=== PATIENT | male | born 1990 | race Caucasian/White ===

== ENCOUNTER 2023-05-31 04:40 | Emergency (ER) | payer SELFPAY ==
[2023-05-31 04:42] VITALS: BP 126/89; PULSE 70; RESP 20; TEMP 36.3; O2SAT 99; BMI 21.9
[2023-05-31 05:14] VITALS: BP 130/81; PULSE 70; O2SAT 98
--- NOTE | 2023-05-31 06:11 | ED_ITS ---
HPI - Allergic Reaction General: Chief complaint: Allergic Reaction Stated complaint: ALLERGIC REACTION Time Seen by Provider: 05/31/23 04:44 History of Present Illness: HPI narrative: 32-year-old male presents emerged depart ment feeling like he has been having allergic reaction. He states he started taking Effexor and had a single dose yesterday and this morning he woke up and feeling like his skin on his abdomen and his arms were burning. He states he felt like he had elevated blood pressure at that time although he has had no significant elevation of blood pressure while here in the emergency department. He denies shortness of breath pruritus difficulty swallowing or breathing. He denies nausea vomiting or feeling like he is having tachycardia. 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 Vital signs as documented. No acute distress at present. Alert and oriented-to person, place, time and situation. Head, eyes, ears, nose, mouth, throat: Normocephalic, atraumatic. Pupils-equal, round, reactive to light. No scleral icterus. Normal-appearing external ears. Normal appearing nasal turbinates, no drainage. No obvious oral lesions, posterior oropharynx without erythema or exudates. Neck: Supple, trachea is midline, no lymphadenopathy, no jugular venous distension, thyromegaly, or carotid bruits. Carotid upstrokes are brisk bilaterally. Lungs: clear to auscultation to all lung powers. Symmetrical rise and fall of chest, no obvious signs of increased work of breathing at present. Cardiac: Regular rate and rhythm, positive S1, S2. No murmurs, rubs or gallops that I can appreciate Abdomen: Soft, non-tender to palpation, normal active bowel sounds to all quadrants. No palpable masses, no organomegaly and abdominal bruits. Extremities: 2+ pulses in the upper extremities that are equal bilaterally, 2+ pulses in the lower extremities that are equal bilaterally. Non-edematous. Moves all extremities well, sensation to all extremities are noted. Skin: Warm, dry, intact. Course Vital Signs: Vital signs: Vital Signs Temperature 97.4 F L 05/31/23 04:42 Pulse Rate 70 05/31/23 05:14 Respiratory Rate 20 H 05/31/23 04:42 Blood Pressure 130/81 05/31/23 05:14 Pulse Oximetry 98 05/31/23 05:14 Oxygen Delivery Me thod Room Air 05/31/23 05:14 MDM - Allergic Reaction Medical Decision Making Physical exam completed and documented patient is not having any signs of allergic reaction I will continue to monitor him and treat accordingly. Medical Records I reviewed the patient's medical records. No radiology studies performed this visit Discharge Plan Discharge Patient Disposition: Home Clinical Impression: Adverse reaction to drug Condition: Stable Prescriptions: No Action venlafaxine [Effexor XR] 150 mg capsule,extended release 24hr 150 mg PO QAM Qty: 30 3RF Rx Instructions: Take one capsule every morning alprazolam 0.5 mg tablet 0.5 mg PO BID PRN (Reason: anxiety) Qty: 60 1RF Discharge Orders: Discharge ED (Routine); Ordered 05/31/23 Ordered By: Yakov Carroll Referrals: Rudy Barragan MD [Primary Care Provider] - Discharge Diet: Usual diet Discharge Activity: Resume usual activity Patient Instructions: Opioid Safety, Pain Management Activity Restrictions/Additional Instructions: Activity Restrictions/Additional Instructions: Thank you for choosing [facility] for your healthcare needs today. Please realize that you were seen in the Emergency Department and that we are providing you with an emergency medical screening exam and this may not be a complete and all inclusive of all the testing and or medical work-up that you may need to determine your ailment or severity of your illness. It is very important that you follow-up as instructed with your Primary care provider or Specialist for additional evaluation and to discuss your medical treatment plan. You may return to the Emergency Department should you have concerns or if your condition changes or worsens in any way. Coding Level of Care Code ED Caterers Helper for Joanie Finney
[2023-05-31 06:34] VITALS: BP 135/72; PULSE 77; RESP 16; O2SAT 97
== END 2023-05-31 06:35 | disposition home or self-care (01) ==
PROVIDERS: Emergency Provider Internal Medicine; Family Provider Family Medicine; PCP Family Medicine
DX: R20.8 Other disturbances of skin sensation (principal); T43.215A Adverse effect of selective serotonin and norepinephrine reuptake inhibitors, initial encounter; F17.220 Nicotine dependence, chewing tobacco, uncomplicated
CPT/HCPCS: 99281

== ENCOUNTER 2023-06-01 00:56 | Emergency (ER) | payer SELFPAY ==
[2023-06-01 01:00] VITALS: BP 132/91; PULSE 70; RESP 16; TEMP 36.1; O2SAT 100; BMI 25.1
--- NOTE | 2023-06-01 01:11 | XRR_ITS ---
PROCEDURE INFORMATION: Exam: XR Chest Exam date and time: 06/01/2023 1:16 AM Age: 32 years old Clinical indication: Pain; Chest pressure; Patient HX: C/O cp TECHNIQUE: Imaging protocol: Radiologic exam of the chest. Views: 1 view. COMPARISON: CR XR chest 1V [id number] 08/05/2018 12:44 PM FINDINGS: Lungs: Unremarkable. No consolidation. Pleural spaces: Unremarkable. No pleural effusion. No pneumothorax. Heart/Mediastinum: Unremarkable. No cardiomegaly. Bones/joints: Unremarkable. XR/XR chest 1V portable [id number] IMPRESSION: No acute findings.
--- NOTE | 2023-06-01 01:12 | ECG_ITS ---
[facility] Test Date: 2023-06-01 Pat Name: Darshan Lewis Department: Room: Gender: Male Magazine Filler: : 1990 Requested By: Angely Mckeon Order Number: [id number] Lacie MD: Aly Cavazos M.D. Measurements Intervals [place] Rate: 71 P: 53 MN: 135 QRS: 43 QRSD: 101 T: 35 QT: 370 QTc: 403 Interpretive Statements SINUS RHYTHM INCOMPLETE RIGHT BUNDLE BRANCH BLOCK [90+ ms QRS DURATION, TERMINAL R IN V1/V2, 40+ ms S IN I/aVL/V4/V5/V6] Compared to ECG 08/05/2018 12:54:09 Incomplete right bundle-branch block now present Electronically Signed On 06-01-2023 7:49:37 OPERATIONS EXAMINER by Aly Cavazos M.D. [id number]
--- NOTE | 2023-06-01 01:13 | ED_ITS ---
HPI - General Adult 2 General: Chief complaint: General Medical Stated complaint: Allergic reaction Time Seen by Provider: 06/01/23 01:02 Source: patient Mode of arrival: ambulatory Limitations: no limitations History of Present Illness: 32-year-old male who was seen here last night for medication reaction he states he just recently started expectorant he was not feeling right he stopped his Effexor he states he has had some heartburn throughout the day today. He states he has a burning sensation in his chest much worse when he lays flat. States he is feeling improved today from yesterday states he is also has some hypertension at home as well. Associated symptoms: Deny chest pain, dyspnea, headache(s), nausea, rash or vomiting Review of Systems 2 Const: Denies: fever(s) or chills ENMT: Denies: throat pain or dental pain Card: Denies: chest pain Resp: Denies: dyspnea GI: Reports: abdominal pain; Denies: nausea, vomiting or diarrhea Musc: Denies: neck pain or back pain Skin/Breast: Denies: rash Neuro: Denies: headache(s) PFSH ED 2 PFSH: Medical History Psychiatric care Bereavement Sudden loss of father November 2020 Generalized anxiety disorder Panic disorder without agoraphobia Major depressive disorder, recurrent severe without psychotic features Social History Smoking and tobacco/nicotine status: current every day tobacco/nicotine user smokeless tobacco Alcohol intake: former Substance/Drug Use: never 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 Physical Exam 2 Const: COMMON NORMALS: no acute distress, patient oriented x3 and healthy appearing HENMT: COMMON NORMALS: normocephalic and atraumatic HEAD & SCALP: n ormocephalic and atraumatic Eye: COMMON NORMALS: conjunctivae normal CONJUNCTIVA: Yes conjunctivae normal Neck/C-Spine: COMMON NORMALS: full ROM and supple Chest: COMMONS NORMALS: normal inspection of the chest Resp: COMMON NORMALS: normal respiratory effort Cardio: COMMON NORMALS: regular rate, regular rhythm and No murmurs present (Cardio) RATE: regular rate RHYTHM: regular rhythm Extremity: COMMON NORMALS: normal to inspection and full ROM Neuro: COMMON NORMALS: patient oriented x3, moves all extremities and no focal motor deficits Psych: COMMON NORMALS: mental status grossly normal, Normal thought process present and cooperative THOUGHT PROCESS: Normal thought process present Skin: COMMON NORMALS: no rashes or lesions noted and no wounds GENERAL SKIN EXAM: no rashes or lesions noted Course 2 Vital Signs: Vital signs: Vital Signs Temperature 97.0 F L 06/01/23 01:00 Pulse Rate 70 06/01/23 01:00 Respiratory Rate 16 06/01/23 01:00 Blood Pressure 132/91 06/01/23 01:00 Pulse Oximetry 100 06/01/23 01:00 Oxygen Delivery Me thod Room Air 06/01/23 01:00 MDM - General Adult Medical Decision Making Patient presents here with some chest pain along with reflux-like symptoms he has a mildly elevated bilirubin he has no pain on exam no right upper quadrant tenderness we will place him on Protonix he is to follow-up his PCP return if worsening he understands agrees to plan Medical Records I reviewed the patient's medical records. Lab Data I reviewed the patient's lab results. 06/01/23 01:24 06/01/23 01:24 Radiology Impressions Chest X-Ray 06/01/23 01:11 IMPRESSION: No acute findings. Laboratory Results WBC 6.97 10^3/uL (3.29-11.43) 06/01/23 01:24 RBC 5.60 10^6/uL (3.85-5.65) 06/01/23 01:24 Hgb 16.30 g/dL (11.27-16.99) 06/01/23 01:24 Hct 48.2 % (37-53) 06/01/23 01:24 MCV 86.1 fl (82-101) 06/01/23 01:24 MCH 29.1 pg (27-33) 06/01/23 01:24 MCHC 33.8 g/dL (30-55) 06/01/23:24 RDW 13.1 % (12.1-15.1) 06/01/23 01:24 Plt Count 211 10^3/cmm (157-399) 06/01/23 01:24 MPV 11.7 fL (7.4-10.4) H 06/01/23 01:24 Neut % (Auto) 56.2 % 06/01/23 01:24 Lymph % (Auto) 30.3 % 06/01/23 01:24 [place] % (Auto) 9.3 % 06/01/23 01:24 Eos % (Auto) 3.0 % 06/01/23 01:24 Baso % (Auto) 0.9 % 06/01/23 01:24 Neut # (Auto) 3.92 10^3/uL (1.8-7.7) 06/01/23 01:24 Lymph # (Auto) 2.1 10^3/uL (0.8-4.8) 06/01/23 01:24 [place] # (Auto) 0.7 10^3/uL (0.2-0.9) 06/01/23:24 Eos # (Auto) 0.2 10^3/uL (0.0-0.8) 06/01/23 01:24 Baso # (Auto) 0.1 10^3/uL (0.0-0.1) 06/01/23:24 Nucleated RBC % (auto) 0 % 06/01/23 01: Nucleated RBCs # 0.0 /100WBC 06/01/23 01:24 Sodium 142 mmol/L (136-145) 06/01/23 01:24 Potassium 4.3 mmol/L (3.5-5.1) 06/01/23 01:24 Chloride 103 mmol/L (98-107) 06/01/23 01:24 Carbon Dioxide 27 mmol/L (22-29) 06/01/23 01:24 Anion Gap 16.3 (5-19) 06/01/23 01:24 BUN 13 mg/dL (6-20) 06/01/23 01:24 Creatinine 1.0 mg/dL (0.7-1.2) 06/01/23 01:24 GFR Calculation 85.5 mL/min (90-130) L 06/01/23 01:24 Glucose 103 mg/dL (65-115) 06/01/23 01:24 Calculated Osmolality 294 mOsm/kg (285-295) 06/01/23 01:24 Calcium 9.2 mg/dL (8.5-10.5) 06/01/23 01:24 Total Bilirubin 2.2 mg/dL (0.15-1.2) H 06/01/23 01:24 AST 27 U/L (0-40) 06/01/23 01:24 ALT 59 U/L (0-41) H 06/01/23 01:24 Alkaline Phosphatase 78 U/L (40-130) 06/01/23 01:24 Total Protein 7.0 g/dL (6.6-8.7) 06/01/23 01:24 Albumin 4.6 g/dL (3.5-5.2) 06/01/23 01:24 Globulin 2.4 g/dL (1.3-4.6) 06/01/23 01:24 Lipase 40 U/L (13-60) 06/01/23 01:24 No radiology studies performed this visit Discharge Plan Discharge Patient Disposition: Home Clinical Impression: Abdominal pain Condition: Stable Prescriptions: New Protonix 40 mg tablet,delayed release (DR/EC) 40 mg PO DAILY Qty: 60 0RF No Action venlafaxine [Effexor XR] 150 mg capsule,extended release 24hr 150 mg PO QAM Qty: 30 3RF Rx Instructions: Take one capsule every morning alprazolam 0.5 mg tablet 0.5 mg PO BID PRN (Reason: anxiety) Qty: 60 1RF Discharge Orders: Discharge ED (Routine); Ordered 06/01/23 Ordered By: Angely Mckeon Referrals: Rudy Barragan MD [Primary Care Provider] - 4-7 days Discharge Diet: Advance as tolerated Discharge Activity: Resume usual activity Patient Instructions: Abdominal Pain (ED) Coding Level of Care Code ED Counter Pocket Sewer for Joanie Finney
[2023-06-01] MEDS: lidocaine 2% viscous 15 ML, aluminum-mag hydrox-simethicon 30 ML, sucralfate oral liq 1 GM PO (01:26)
[2023-06-01 01:30] LABS: Basophils # 0.1 10^3/uL (0.0-0.1); Basophils % 0.9 %; Eosinophils # 0.2 10^3/uL (0.0-0.8); Hematocrit 48.2 % (37-53); Lymphocytes # 2.1 10^3/uL (0.8-4.8); Lymphocytes % 30.3 %; Mean Corpuscular HGB Conc 33.8 g/dL (30-55); Mean Corpuscular Hemoglobin 29.1 pg (27-33); Mean Corpuscular Volume 86.1 fl (82-101); Mean Platelet Volume 11.7 fL (7.4-10.4); Monocytes # 0.7 10^3/uL (0.2-0.9); Monocytes % 9.3 %; Neutrophils # 3.92 10^3/uL (1.8-7.7); Neutrophils % 56.2 %; Nucleated Red Blood Cells % 0 %; Platelet Count 211 10^3/cmm (157-399); Red Cell Distribution Width 13.1 % (12.1-15.1); White Blood Count 6.97 10^3/uL (3.29-11.43)
[2023-06-01 01:37] VITALS: BP 132/98; PULSE 72; RESP 14; O2SAT 100
[2023-06-01 02:03] LABS: Alanine Aminotransferase 59 U/L (0-41); Albumin Level 4.6 g/dL (3.5-5.2); Alkaline Phosphatase 78 U/L (40-130); Anion Gap 16.3 (5-19); Aspartate Amino Transferase 27 U/L (0-40); Blood Urea Nitrogen 13 mg/dL (6-20); Calcium 9.2 mg/dL (8.5-10.5); Carbon Dioxide 27 mmol/L (22-29); Chloride 103 mmol/L (98-107); Creatinine Clr Calc Pharmacy 107.8615; Globulin 2.4 g/dL (1.3-4.6); Glomerular Filtration Rate 85.5 mL/min (90-130); Glucose 103 mg/dL (65-115); Lipase 40 U/L (13-60); Osmolality Calculated 294 mOsm/kg (285-295); Potassium 4.3 mmol/L (3.5-5.1); Sodium 142 mmol/L (136-145); Total Bilirubin 2.2 mg/dL (0.15-1.2)
[2023-06-01 02:07] VITALS: BP 126/81; PULSE 68; RESP 14; O2SAT 98
[2023-06-01] MEDS: pantoprazole DR 40 mg Tablet PO (02:45)
[2023-06-01 02:51] VITALS: BP 123/81; PULSE 59; RESP 16; O2SAT 97
== END 2023-06-01 02:52 | disposition home or self-care (01) ==
PROVIDERS: Emergency Provider Emergency Medicine; Family Provider Family Medicine; PCP Family Medicine
DX: R10.11 Right upper quadrant pain (principal); F17.220 Nicotine dependence, chewing tobacco, uncomplicated
CPT/HCPCS: 36415; 71045; 80053; 83690; 85025; 93005; 99285

== ENCOUNTER 2023-06-01 03:22 | Emergency (ER) | payer SELFPAY ==
[2023-06-01 04:10] VITALS: BP 153/84; PULSE 68; RESP 20; TEMP 36.6; O2SAT 100; BMI 25.1
--- NOTE | 2023-06-01 04:30 | ED_ITS ---
HPI - Anxiety General: Chief Complaint: Anxiety Stated Complaint: Allergic reation Time Seen by Provider: 06/01/23 04:24 Source: patient Mode of arrival: ambulatory Limitations: no limitations History of Present Illness: 32-year-old male seen here earlier state s he has been having burning esophagus since taking disease faster he stopped his Effexor yesterday states been having anxiety as well. He states that once he went home he started having extreme anxiety he no longer has any pain denies chest pain or abdominal pain he states he feels quite anxious he been checking his blood pressure and it was high as well. Denies any vomiting or diarrhea. Associated symptoms: Deny chest pain, chills, fever(s), headache(s), nausea or vomiting Review of Systems Const: Denies: fever(s), chills, body aches or change in appetite ENMT: Denies: throat pain or dental pain Card: Denies: chest pain Resp: Denies: dyspnea GI: Denies: abdominal pain, nausea, vomiting or diarrhea Musc: Denies: neck pain or back pain Skin/Breast: Denies: rash Neuro: Denies: headache(s) Psych: Reports: anxiety [facility] ED PFSH: Medical History Psychiatric care Bereavement Sudden loss of father November 2020 Generalized anxiety disorder Panic disorder without agoraphobia Major depressive disorder, recurrent severe without psychotic features Social History Smoking and tobacco/nicotine status: current every day tobacco/nicotine user smokeless tobacco Alcohol intake: former Substance/Drug Use: never 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 Physical Exam Const: COMMON NORMALS: no acute distress, patient oriented x3 and healthy appearing HENMT: COMMON NORMALS: normocephalic and atraumatic HEAD & SCALP: normoc ephalic and atraumatic Neck/C-Spine: COMMON NORMALS: full ROM and supple Chest: COMMONS NORMALS: normal inspection of the chest Resp: COMMON NORMALS: normal respiratory effort, No retractions, No use of accessory muscles and clear to auscultation bilaterally AUSCULTATION: clear to auscultation bilaterally Cardio: COMMON NORMALS: regular rate, regular rhythm and No murmurs present (Cardio) RATE: regular rate RHYTHM: regular rhythm GI: COMMON NORMALS: Normal to inspection, nondistended, normoactive bowel sounds present, Soft to palpation, non-tender and no masses PALPATION: Yes Soft to palpation Extremity: COMMON NORMALS: normal to inspection and full ROM Neuro: COMMON NORMALS: patient oriented x3, moves all extremities and no focal motor deficits Psych: COMMON NORMALS: mental status grossly normal, Normal thought process present and cooperative THOUGHT PROCESS: Normal thought process present Skin: COMMON NORMALS: no rashes or lesions noted and no wounds GENERAL SKIN EXAM: no rashes or lesions noted Course Vital Signs: Vital signs: Vital Signs Temperature 97.8 F 06/01/23 04:10 Pulse Rate 68 06/01/23 04:10 Respiratory Rate 20 H 06/01/23 04:10 Blood Pressure 153/84 06/01/23 04:10 Pulse Oximetry 100 06/01/23 04:10 MDM - Anxiety Medical Decision Making Patient presents with anxiety along with hypertension. His exam here is benign he has no abdominal tenderness he has no pain at this time currently. Will give him Ativan we will start him on metoprolol for his blood pressure he is to follow-up with PCP next week return if worsening No radiology studies performed this visit Discharge Plan Discharge Patient Disposition: Home Clinical Impression: Acute anxiety, Hypertension Condition: Stable Prescriptions: New metoprolol succinate 25 mg tablet extended release 24 hr 25 mg PO DAILY Qty: 30 0RF No Action venlafaxine [Effexor XR] 150 mg capsule,extended release 24hr 150 mg PO QAM Qty: 30 3RF Rx Instructions: Take one capsule every morning alprazolam 0.5 mg tablet 0.5 mg PO BID PRN (Reason: anxiety) Qty: 60 1RF Protonix 40 mg tablet,delayed release (DR/EC) 40 mg PO DAILY Qty: 60 0RF Discharge Orders: Discharge ED (Routine); Ordered 06/01/23 Ordered By: Angely Mckeon Referrals: Rudy Barragan MD [Primary Care Provider] - 4-7 days Discharge Diet: Advance as tolerated Discharge Activity: Resume usual activity Patient Instructions: Hypertension (ED) Coding Level of Care Code ED Dry House Operator for Joanie Finney
[2023-06-01] MEDS: metoprolol tartrate 25 mg Tablet PO (04:41)
[2023-06-01] MEDS: LORazepam 2 mg/mL INJ 10 mL MDV 1 MG IM (04:42)
[2023-06-01 05:03] VITALS: BP 125/73; RESP 16
[2023-06-01 05:55] VITALS: BP 110/66; RESP 14
== END 2023-06-01 06:00 | disposition home or self-care (01) ==
PROVIDERS: Emergency Provider Emergency Medicine; Family Provider Family Medicine; PCP Family Medicine
DX: F41.9 Anxiety disorder, unspecified (principal); I10 Essential (primary) hypertension; F17.220 Nicotine dependence, chewing tobacco, uncomplicated
CPT/HCPCS: 96372; 99284; J2060

== ENCOUNTER 2023-06-02 19:55 | Emergency (ER) | payer SELFPAY ==
[2023-06-02 19:59] VITALS: BP 138/92; PULSE 58; RESP 16; TEMP 36.4; O2SAT 100; BMI 25.1
[2023-06-02] MEDS: lidocaine 2% viscous 15 ML, aluminum-mag hydrox-simethicon 30 ML, sucralfate oral liq 1 GM PO (20:36)
--- NOTE | 2023-06-02 21:09 | ED_ITS ---
HPI - Allergic Reaction General: Chief complaint: Allergic Reaction Stated complaint: High bp Time Seen by Provider: 06/02/23 20:10 Source: patient Mode of arrival: ambulatory Limitations: no limitations History of Present Illness: HPI narrative: 32yo male presents with concerns of a po ssible allergic reaction. Patient states he has been seen at this facility multiple times over the past couple days. He reports that he did take venlafaxine on the night of 05/30/2023 and came to the emergency department on 05/31/2023 for concern of an allergic reaction. Patient states he did not take anymore the venlafaxine, but was seen early Friday morning for concerns of not feeling right. States he had a burning sensation in his chest that was worse when he lays flat. Patient was prescribed pantoprazole at that time. He was then seen again later in the morning of 06/01/2023 for increased anxiety and elevated blood pressure. Patient reports that he has had intermittent burning sensation in his upper arms, neck, and upper chest. He states that he is having burning sensation in his esophagus area as well. He states that he does not have an opportunity to picker machine operator his soliz toprazole yet, but has been taking his [id number]-[id number] famotidine without improvement. Patient also states that he did take 2 Benadryl tonight as it is his normal every night. Patient also reports that his blood pressure has been fluctuating. He denies chest pain, shortness of breath, abdominal pain, vomiting, diarrhea, any other concern at this time. Associated symptoms: Deny abdominal pain, facial swelling, tongue swelling or vomiting Review of Systems Const: Denies: fever(s) or chills Card: Denies: chest pain Resp: Denies: dyspnea GI: Denies: abdominal pain, vomiting or diarrhea Neuro: Denies: headache(s) All/Imm: Denies: urticaria, tongue swelling, facial swelling, acute wheezing or itchy eyes PFSH ED PFSH: Medical History Psychiatric care Bereavement Sudden loss of father November 2020 Generalized anxiety disorder Panic disorder without agoraphobia Major depressive disorder, recurrent severe without psychotic features Social History Smoking and tobacco/nicotine status: current every day tobacco/nicotine user smokeless tobacco Alcohol intake: former Substance/Drug Use: never 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 He is sitting upright on stretcher no acute distress. He is able to give history with no difficulty. No family is at bedside at time of exam HENMT: COMMON NORMALS: normocephalic HEAD & SCALP: normocephalic MOUTH: Normal oral and palatal mucosa present Neck/C-Spine: COMMON NORMALS: full ROM Chest: CHEST: Yes Symmetrical chest wall rise Resp: COMMON NORMALS: normal respiratory effort EFFORT & INSPECTION: Yes able to speak in complete sentences Back/Pelvis: COMMON NORMALS: thoraco-lumbar ROM normal Extremity: COMMON NORMALS: full ROM Neuro: COMMON NORMALS: patient oriented x3 SENSORIUM/ORIENTATION: Yes alert SPEECH: speech normal GAIT: Yes Normal gait present Psych: COMMON NORMALS: mental status grossly normal, cooperative, normal affect and speech normal APPEARANCE: Yes grossly normal ATTITUDE: Yes calm ACTIVITY/MOTOR BEHAVIOR: Yes appropriate eye contact SPEECH: Yes normal sp eech Course Reevaluation(s): Time: 21:05 Reevaluation #2: Patient reports that his heartburn is feeling much better after the medication. Patient's mother is now at bedside and is concerned that he may be having a heart attack as her only symptom was heartburn when she had her heart attack. They are questioning whether his cardiac enzymes were checked when he was here previously and had blood work completed. No cardiac enzymes were checked at that time. They are requesting cardiac enzymes to be checked today. Discussed that we can proceed with a baseline troponin as his symptoms have been ongoing for the past several days. If it is cardiac related, his baseline troponin would be elevated and we can proceed as indicated. Patient and family are agreeable with plan Vital Signs: Vital signs: Vital Signs Temperature 97.6 F 06/02/23 19:59 Pulse Rate 59 L 06/02/23 22:13 Respiratory Rate 16 06/02/23 22:13 Blood Pressure 119/77 06/02/23 22:13 Pulse Oximetry 98 06/02/23 22:13 Oxygen Delivery Me thod Room Air 06/02/23 19:59 MDM - Allergic Reaction Medical Decision Making 32yo male here for continued intermittent burning sensation in bilateral arms, neck, and upper chest as well as heartburn. Patient has been seen in this ER 3 times in the past 2 days for concern for an allergic reaction, heartburn, and anxiety. Patient reports that the burning sensation does go away for a while, but continues to come back. He reports that he has been taking his [id number]-frtmczv famotidine, but has not yet picked up his prescribed pantoprazole. He does report that he took 2 jdqm-idc-[id number] diphenhydramine prior to coming to the emergency department as that is his typical behavior at night. Patient denies headache, difficulty breathing, shortness of breath, chest pain, abdominal pain, vomiting, diarrhea. Patient is nontoxic in appearance. Vital signs are stable. Patient did report improvement in his heartburn after administration of a GI cocktail. Patient and his mother were concerned of possible cardiac etiology given that they do have a family history of cardiac problems and mother's only symptoms of her heart attack was heartburn. Proceeded with baseline troponin as patient symptoms have been ongoing for several days, so baseline should be elevated if cardiac in nature. Baseline troponin is negative. Discussed findings with patient and family. Strongly encourage patient to picker machine operator his previously prescribed pantoprazole and continue to monitor his symptoms. Recommend he follow-up with his doctor within the next week for recheck. Advised return to the emergency department if any rapid worsening symptoms, difficulty breathing, shortness of breath, chest pain, and as needed. Patient states understanding has no further questions at this time. Medical Records I reviewed the patient's medical records. Lab Data I reviewed the patient's lab results. Laboratory Results Troponin T Baseline < 6 ng/L (0-15) 06/02/23 21:30 No radiology studies performed this visit Discharge Plan Discharge Patient Disposition: Home Clinical Impression: Burning sensation GERD (gastroesophageal reflux disease) Qualifiers: Esophagitis presence: without esophagitis Qualified Code(s): K21.9 - Gastro- esophageal reflux disease without esophagitis Condition: Stable Prescriptions: No Action alprazolam 0.5 mg tablet 0.5 mg PO BID PRN (Reason: anxiety) Qty: 60 1RF metoprolol succinate 25 mg tablet extended release 24 hr 25 mg PO DAILY Qty: 30 0RF Protonix 40 mg tablet,delayed release (DR/EC) 40 mg PO DAILY Qty: 60 0RF Discharge Orders: Discharge ED (Routine); Ordered 06/02/23 Ordered By: William Jeffrey Referrals: Rudy Barragan MD [Primary Care Provider] - Discharge Diet: Advance as tolerated Discharge Activity: Resume usual activity Patient Instructions: GERD (Gastroesophageal Reflux Disease) (ED) Activity Restrictions/Additional Instructions: Your cardiac enzymes today were in the normal range Begin taking your previously prescribed Protonix as this will likely help your heartburn quite a bit. [facility] Please see provided handout with information about GERD Begin with a bland diet and slowly increase as tolerated Please continue to monitor the burning sensation Follow-up with your doctor later this week for recheck Return to the emergency department if any rapid worsening symptoms and as needed Coding Level of Care Code ED Mat Machine Operator for Joanie Finney
[2023-06-02 21:54] LABS: Troponin(5th) Baseline < 6 ng/L (0-15)
[2023-06-02 22:13] VITALS: BP 119/77; PULSE 59; RESP 16; O2SAT 98
== END 2023-06-02 22:16 | disposition home or self-care (01) ==
PROVIDERS: Emergency Provider Nurse Practitioner; Family Provider Family Medicine; PCP Family Medicine
DX: R20.8 Other disturbances of skin sensation (principal); K21.9 Gastro-esophageal reflux disease without esophagitis; F17.220 Nicotine dependence, chewing tobacco, uncomplicated
CPT/HCPCS: 36415; 84484; 99283

== ENCOUNTER 2023-06-05 19:48 | Emergency (ER) | payer SELFPAY ==
[2023-06-05 19:52] VITALS: BP 132/81; PULSE 70; RESP 16; TEMP 36.6; O2SAT 97
--- NOTE | 2023-06-05 20:26 | ED_ITS ---
HPI - General Adult General: Chief complaint: General Medical Stated complaint: Throats and Stomach burning Time Seen by Provider: 06/05/23 20:15 History of Present Illness: 42-year-old male patient comes in today with throat and stomach burning. Patient reports symptoms for the last 2 weeks that have been unbearable at times. Patient has had some improvement since starting pantoprazole but continues to have anxiety related to pain and discomfort. Patient's father has had problems with his heart and with gastritis so he is concerned he may have some gastritis. Patient has been been a tobacco user but has not used since the symptoms started. Patient appears nontoxic. Patient appears in no pain. Patient denies any blood in vomit or stool. 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 Physical Exam Const: COMMON NORMALS: alert HENMT: COMMON NORMALS: normocephalic HEAD & SCALP: normocephalic Neck/C-Spine: COMMON NORMALS: full ROM Resp: COMMON NORMALS: normal respiratory effort and clear to auscultation bilaterally AUSCULTATION: clear to auscultation bilaterally Cardio: COMMON NORMALS: regular rate and regular rhythm RATE: regular rate RHYTHM: regular rhythm GI: COMMON NORMALS: Soft to palpation PALPATION: Yes Soft to palpation and Yes Tenderness to palpation present (GI) (Epigastric tenderness) Back/Pelvis: COMMON NORMALS: thoracic and lumbar spine normal to inspection Extremity: COMMON NORMALS: normal to inspection Neuro: SENSORIUM/ORIENTATION: Yes alert Skin: COMMON NORMALS: turgor normal GENERAL SKIN EXAM: turgor normal Course Vital Signs: Vital signs: Vital Signs Temperature 97.9 F 06/05/23 19:52 Pulse Rate 70 06/05/23 19:52 Respiratory Rate 16 06/05/23 19:52 Blood Pressure 132/81 06/05/23 19:52 Pulse Oximetry 97 06/05/23 19:52 MDM - General Adult Medical Decision Making 32-year-old male patient comes in today with complaints of burning from his throat to his stomach. Patient reports some improvement discomfort since starting pantoprazole. Patient is wanting referral for EGD for further evaluation. Patient otherwise is in no acute distress. Vital signs are normal. Differential diagnosis includes esophagitis, peptic ulcer disease, pancreatitis, gallbladder disease. Review of the record noted no significant abnormalities on labs done on patient's last [address] a case management referral for EGD secondary to esophagitis. Patient reported understanding and agreed to plan. No radiology studies performed this visit Discharge Plan Discharge Patient Disposition: Home Clinical Impression: Esophagitis Condition: Stable Prescriptions: No Action alprazolam 0.5 mg tablet 0.5 mg PO BID PRN (Reason: anxiety) Qty: 60 1RF fluoxetine [Prozac] 20 mg capsule 20 mg PO .morning Qty: 30 3RF Rx Instructions: Take one capsule every morning metoprolol succinate 25 mg tablet extended release 24 hr 25 mg PO DAILY Qty: 30 0RF Protonix 40 mg tablet,delayed release (DR/EC) 40 mg PO DAILY Qty: 60 0RF Discharge Orders: Discharge ED (Routine); Ordered 06/05/23 Ordered By: Kan Cárdenas Discharge Diet: Usual diet Discharge Activity: Increase activity as tolerated Patient Instructions: Esophagitis (ED) Activity Restrictions/Additional Instructions: Continue with routine medications. Case management will contact you regarding follow-up appointment with surgeon for upper endoscopy procedures for further evaluation of burning chest pain. Return to ER for new concerns or worsening symptoms such as severe shortness of breath, inability to swallow, blood in vomit or stool. Coding Level of Care Code ED Fruit Loader for Joanie Finney
--- NOTE | 2023-06-06 11:42 | DCPLANNER ---
Message was sent to general surgery on 06/06/23 at [id number]. [facility] to contact patient with an appt.
== END 2023-06-05 20:32 | disposition home or self-care (01) ==
PROVIDERS: Emergency Provider Nurse Practitioner Family
DX: K20.90 Esophagitis, unspecified without bleeding (principal); F17.220 Nicotine dependence, chewing tobacco, uncomplicated
CPT/HCPCS: 99281

== ENCOUNTER 2023-06-12 18:51 | Emergency (ER) | payer SELFPAY ==
[2023-06-12 18:56] VITALS: BP 146/81; PULSE 71; RESP 16; TEMP 36.5; O2SAT 99
[2023-06-12 20:53] LABS: Basophils # 0.1 10^3/uL (0.0-0.1); Basophils % 0.9 %; Eosinophils # 0.1 10^3/uL (0.0-0.8); Eosinophils % 1.6 %; Hematocrit 47.1 % (37-53); Lymphocytes # 2.1 10^3/uL (0.8-4.8); Lymphocytes % 28.9 %; Mean Corpuscular HGB Conc 33.5 g/dL (30-55); Mean Corpuscular Hemoglobin 29.2 pg (27-33); Mean Corpuscular Volume 86.9 fl (82-101); Mean Platelet Volume 11.9 fL (7.4-10.4); Monocytes # 0.6 10^3/uL (0.2-0.9); Monocytes % 8.1 %; Neutrophils # 4.45 10^3/uL (1.8-7.7); Neutrophils % 60.2 %; Nucleated Red Blood Cells % 0 %; Platelet Count 224 10^3/cmm (157-399); Red Blood Count 5.42 10^6/uL (3.85-5.65); Red Cell Distribution Width 13.2 % (12.1-15.1)
[2023-06-12 21:18] LABS: Alanine Aminotransferase 23 U/L (0-41); Albumin Level 4.6 g/dL (3.5-5.2); Alkaline Phosphatase 65 U/L (40-130); Anion Gap 11.7 (5-19); Aspartate Amino Transferase 16 U/L (0-40); Blood Urea Nitrogen 11 mg/dL (6-20); Calcium 9.2 mg/dL (8.5-10.5); Carbon Dioxide 30 mmol/L (22-29); Chloride 102 mmol/L (98-107); Creatinine Clr Calc Pharmacy 104.9229; Globulin 2.4 g/dL (1.3-4.6); Glomerular Filtration Rate 85.5 mL/min (90-130); Glucose 84 mg/dL (65-115); Lipase 64 U/L (13-60); Osmolality Calculated 289 mOsm/kg (285-295); Potassium 3.7 mmol/L (3.5-5.1); Sodium 140 mmol/L (136-145); Total Bilirubin 1.2 mg/dL (0.15-1.2)
--- NOTE | 2023-06-12 22:09 | W.ED.ABDPA2 ---
Documented by User: ERIN Giles 06/12/23 22:17 HPI - Abdominal Pain General: Chief Complaint: Abdominal Pain Stated Complaint: Upper ABD Pain Time Seen by Provider: 06/12/23 21:20 Source: patient Mode of arrival: ambulatory Limitations: no limitations History of Present Illness: Patient is a 32-year-old male with past medical history of GERD who presents to the emergency department complaining of epigastric pain onset 2 weeks. Patient states the pain began all of a sudden, and that he is worried it is a hernia due to his familial history. He does note that he has been on Protonix chronically due to his history of reflux, and states that his current pain is worsened with eating. However, he denies regurgitation of food or the inability to swallow solids or liquids. He denies history of alcohol abuse. The pain does not radiate and is localized just beneath the xiphoid process. It feels gnawing in characteristic, and has become more constant since onset. He states that it is starting to interfere with his job, as he is constantly exerting himself. He notes that he has a consult with Dr. Mendoza next Friday for potential upper endoscopy. Otherwise, patient denies any fever, shortness of breath, nausea/vomiting, bowel changes, or any other symptoms. MD elicited complaint: abdominal pain Onset (ago): week(s) Pain Consistency: constant Location: Epigastric Quality: other (gnawing) Radiation: none Migration to: no migration Exacerbating factors: eating Associated Symptoms: Denies chills, constipation, diarrhea, dysuria, fever(s), nausea and vomiting Review of Systems General: Reports: 10 or more systems reviewed and unremarkable except in HPI and below Const: Denies: fever(s), chills or fatigue Eyes: Denies: change in vision ENMT: Denies: throat pain, ear or mastoid pain or nasal discharge Card: Denies: chest pain, palpitations, swelling of feet/ankles or lightheadedness Resp: Denies: dyspnea, productive cough or wheezing GI: Reports: abdominal pain; Denies: nausea, vomiting, diarrhea or constipation : Denies: flank pain, difficulty urinating, dysuria or urinary frequency Musc: Denies: neck pain, back pain or joint pain Skin/Breast: Denies: rash Neuro: Denies: headache(s), numbness in extremities or weakness in extremities PFSH ED PFSH: Medical History Psychiatric care Bereavement Sudden loss of father November 2020 Generalized anxiety disorder Panic disorder without agoraphobia Major depressive disorder, recurrent severe without psychotic features Social History Smoking and tobacco/nicotine status: current every day tobacco/nicotine user smokeless tobacco Alcohol intake: former Substance/Drug Use: never 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 Physical Exam Const: COMMON NORMALS: no acute distress, average body habitus, patient oriented x3, no limitations, healthy appearing, alert and well nourished GENERAL APPEARANCE: cooperative and comfortable ORIENTATION/CONSCIOUSNESS: Yes awake HENMT: COMMON NORMALS: normocephalic, atraumatic, hearing grossly normal bilaterally, external ears normal, Normal external nose present, Normal nasal mucous membranes and turbinates present and moist oral mucous membranes HEAD & SCALP: normocephalic and atraumatic NOSE: Normal external nose present and Normal nasal mucous membranes and turbinates present EXTERNAL EAR: Yes external ears normal Eye: COMMON NORMALS: Equal, round and reactive pupils present, EOMs intact bilaterally, conjunctivae normal and normal visual powers by confrontation CONJUNCTIVA: Yes conjunctivae normal PUPIL: Yes Equal, round and reactive pupils present Neck/C-Spine: COMMON NORMALS: full ROM, supple, no meningeal signs and no JVD Resp: COMMON NORMALS: normal respiratory effort, No retractions, No use of accessory muscles and clear to auscultation bilaterally AUSCULTATION: clear to auscultation bilaterally, no crackles, no rales, no rhonchi and no wheezes Cardio: COMMON NORMALS: no JVD, regular rate, regular rhythm, S1 normal heart sound present, S2 normal heart sound present, No gallops present (Cardio), No clicks present (Cardio), No murmurs present (Cardio), No rub (Cardio) and Peripheral pulses 2+ throughout RATE: regular rate RHYTHM: regular rhythm HEART SOUNDS: S1 normal heart sound present and S2 normal heart sound present PERIPHERAL PULSES: Peripheral pulses 2+ throughout GI: COMMON NORMALS: Normal to inspection, nondistended, normoactive bowel sounds present, Soft to palpation, No hepatosplenomegaly present and no masses INSPECTION: Yes normal to inspection, No abdominal wall ecchymosis and No abdominal distension AUSCULTATION: Yes normoactive bowel sounds PALPATION: Yes Soft to palpation, Yes Tenderness to palpation present (GI) Details: other (Mild epigastric TTP), No Guarding due to palpation present (GI), No Rigid due to palpation, Yes No hepatosplenomegaly present and No Pulsatile mass present RECTAL EXAM: Yes deferred Extremity: COMMON NORMALS: normal to inspection and full ROM Neuro: COMMON NORMALS: patient oriented x3, moves all extremities, no focal motor deficits and no sensory deficits noted SENSORIUM/ORIENTATION: Yes alert MENINGEAL SIGNS: Yes no meningeal signs Psych: COMMON NORMALS: mental status grossly normal, cooperative and speech normal SPEECH: Yes normal speech Skin: COMMON NORMALS: no rashes or lesions noted GENERAL SKIN EXAM: no rashes or lesions noted Course Vital Signs: Vital signs: Vital Signs Temperature 97.7 F 06/12/23 22:20 Pulse Rate 71 06/12/23 22:20 Respiratory Rate 16 06/12/23 22:20 Blood Pressure 146/81 06/12/23 22:20 Pulse Oximetry 99 06/12/23 22:20 Oxygen Delivery Me thod Room Air 06/12/23 18:56 MDM - Abdominal Pain Medical Decision Making This patient is a 32-year-old male who was seen and evaluated in the emergency department today for epigastric pain for the past 2 weeks. On arrival, patient's vitals were normal and have remained so throughout his ED course. CBC ordered failed to demonstrate any signs of acute infection and was unremarkable. CMP also unremarkable. Patient reports longstanding history of GERD for which she takes Protonix, and has a appointment with Dr. Mendoza next week to discuss possible upper endoscopy to evaluate his current symptoms. Due to patient's negative workup today, I feel it is appropriate for patient to continue plan for follow-up, and I will prescribe him some Carafate to take prior to this visit. He is also instructed to continue taking Protonix. Differential diagnosis includes GERD, gastric ulcer, pancreatitis. Patient agrees with plan for discharge and will follow-up on Friday as planned. Reasons to return are discussed. Patient discharged home. Lab Data 06/12/23 20:29 06/12/23 20:29 Labs/Radiology: Laboratory Results WBC 7.40 10^3/uL (3.29-11.43) 06/12/23 20: RBC 5.42 10^6/uL (3.85-5.65) 06/12/23 20: Hgb 15.80 g/dL (11.27-16.99) 06/12/23 20: Hct 47.1 % (37-53) 06/12/23 20: MCV 86.9 fl (82-101) 06/12/23 20: MCH 29.2 pg (27-33) 06/12/23 20: MCHC 33.5 g/dL (30-55) 06/12/23: RDW 13.2 % (12.1-15.1) 06/12/23: Plt Count 224 10^3/cmm (157-399) 06/12/23: MPV 11.9 fL (7.4-10.4) H 06/12/23: Neut % (Auto) 60.2 % 06/12/23: Lymph % (Auto) 28.9 % 06/12/23 20: Mayes % (Auto) 8.1 % 06/12/23: Eos % (Auto) 1.6 % 06/12/23: Baso % (Auto) 0.9 % 06/12/23: Neut # (Auto) 4.45 10^3/uL (1.8-7.7) 06/12/23: Lymph # (Auto) 2.1 10^3/uL (0.8-4.8) 06/12/23: Mayes # (Auto) 0.6 10^3/uL (0.2-0.9) 06/12/23: Eos # (Auto) 0.1 10^3/uL (0.0-0.8) 06/12/23: Baso # (Auto) 0.1 10^3/uL (0.0-0.1) 06/12/23: Nucleated RBC % (auto) 0 % 06/12/23: Nucleated RBCs # 0.0 /100WBC 06/12/23 20: Sodium 140 mmol/L (136-145) 06/12/23: Potassium 3.7 mmol/L (3.5-5.1) 06/12/23 20: Chloride 102 mmol/L (98-107) 06/12/23 20: Carbon Dioxide 30 mmol/L (22-29) H 06/12/23 20:29 Anion Gap 11.7 (5-19) 06/12/23 20:29 BUN 11 mg/dL (6-20) 06/12/23 20: Creatinine 1.0 mg/dL (0.7-1.2) 06/12/23 20:29 GFR Calculation 85.5 mL/min (90-130) L 06/12/23 20:29 Glucose 84 mg/dL (65-115) 06/12/23 20: Calculated Osmolality 289 mOsm/kg (285-295) 06/12/23 20: Calcium 9.2 mg/dL (8.5-10.5) 06/12/23 20: Total Bilirubin 1.2 mg/dL (0.15-1.2) 06/12/23 20: AST 16 U/L (0-40) 06/12/23 20: ALT 23 U/L (0-41) 06/12/23 20:29 Alkaline Phosphatase 65 U/L (40-130) 06/12/23 20:29 Total Protein 7.0 g/dL (6.6-8.7) 06/12/23 20: Albumin 4.6 g/dL (3.5-5.2) 06/12/23 20: Globulin 2.4 g/dL (1.3-4.6) 06/12/23 20: Lipase 64 U/L (13-60) H 06/12/23 20:29 No radiology studies performed this visit Discharge Plan Discharge Patient Disposition: Home Clinical Impression: Epigastric abdominal pain Condition: Stable Prescriptions: New Carafate 1 gram tablet 1 g PO TID 10 Days Qty: 30 0RF No Action alprazolam 0.5 mg tablet 0.5 mg PO BID PRN (Reason: anxiety) Qty: 60 1RF fluoxetine [Prozac] 20 mg capsule 20 mg PO .morning Qty: 30 3RF Rx Instructions: Take one capsule every morning metoprolol succinate 25 mg tablet extended release 24 hr 25 mg PO DAILY Qty: 30 0RF Protonix 40 mg tablet,delayed release (DR/EC) 40 mg PO DAILY Qty: 60 0RF Discharge Orders: Discharge ED (Routine); Ordered 06/12/23 Ordered By: Darshan Suarez Discharge Diet: Usual diet Discharge Activity: Increase activity as tolerated Patient Instructions: Abdominal Pain (ED) Activity Restrictions/Additional Instructions: Carafate as prescribed. Continue your Protonix as usual. Plenty of fluids. Continue plan to follow-up with Dr. Mendoza next week. Return if you develop any new or worsening symptoms. Coding Level of Care Code ED [employer] for [facility] Documented by User: Bert Holman DO 06/13/23 06:15 HPI - Abdominal Pain General: Chief Complaint: Abdominal Pain Stated Complaint: Upper ABD Pain Time Seen by Provider: 06/12/23 21:20 [facility] ED PFSH: Medical History Psychiatric care Bereavement Sudden loss of father November 2020 Generalized anxiety disorder Panic disorder without agoraphobia Major depressive disorder, recurrent severe without psychotic features Social History Smoking and tobacco/nicotine status: current every day tobacco/nicotine user smokeless tobacco Alcohol intake: former Substance/Drug Use: never 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 On arrival, patient's vitals were normal and have remained so throughout his ED course. CBC ordered failed to demonstrate any signs of acute infection and was unremarkable. CMP also unremarkable. Patient reports longstanding history of GERD for which she takes Protonix, and has a appointment with Dr. Mendoza next week to discuss possible upper endoscopy to evaluate his current symptoms. Due to patient's negative workup today, I feel it is appropriate for patient to continue plan for follow-up, and I will prescribe him some Carafate to take prior to this visit. He is also instructed to continue taking Protonix. Differential diagnosis includes GERD, gastric ulcer, pancreatitis. Patient agrees with plan for discharge and will follow-up on Friday as planned. Reasons to return are discussed. Patient discharged home. Chart reviewed and patient discussed with midlevel. Agree with assessment and plan. Lab Data 06/12/23 20:06/12/23 20: Labs/Radiology: Laboratory Results WBC 7.40 10^3/uL (3.29-11.43) 06/12/23 20: RBC 5.42 10^6/uL (3.85-5.65) 06/12/23 20: Hgb 15.80 g/dL (11.27-16.99) 06/12/23 20: Hct 47.1 % (37-53) 06/12/23: MCV 86.9 fl (82-101) 06/12/23: MCH 29.2 pg (27-33) 06/12/23 20: MCHC 33.5 g/dL (30-55) 06/12/23 20: RDW 13.2 % (12.1-15.1) 06/12/23: Plt Count 224 10^3/cmm (157-399) 06/12/23 20: MPV 11.9 fL (7.4-10.4) H 06/12/23 20: Neut % (Auto) 60.2 % 06/12/23: Lymph % (Auto) 28.9 % 06/12/23 20: Mayes % (Auto) 8.1 % 06/12/23 20: Eos % (Auto) 1.6 % 06/12/23: Baso % (Auto) 0.9 % 06/12/23: Neut # (Auto) 4.45 10^3/uL (1.8-7.7) 06/12/23 20: Lymph # (Auto) 2.1 10^3/uL (0.8-4.8) 06/12/23 20: Mayes # (Auto) 0.6 10^3/uL (0.2-0.9) 06/12/23 20: Eos # (Auto) 0.1 10^3/uL (0.0-0.8) 06/12/23 20: Baso # (Auto) 0.1 10^3/uL (0.0-0.1) 06/12/23 20: Nucleated RBC % (auto) 0 % 06/12/23 20: Nucleated RBCs # 0.0 /100WBC 06/12/23 20: Sodium 140 mmol/L (136-145) 06/12/23 20: Potassium 3.7 mmol/L (3.5-5.1) 06/12/23: Chloride 102 mmol/L (98-107) 06/12/23: Carbon Dioxide 30 mmol/L (22-29) H 06/12/23 20: Anion Gap 11.7 (5-19) 06/12/23 20: BUN 11 mg/dL (6-20) 06/12/23 20: Creatinine 1.0 mg/dL (0.7-1.2) 06/12/23 20: GFR Calculation 85.5 mL/min (90-130) L 06/12/23: Glucose 84 mg/dL (65-115) 06/12/23 20: Calculated Osmolality 289 mOsm/kg (285-295) 06/12/23 20: Calcium 9.2 mg/dL (8.5-10.5) 06/12/23 20: Total Bilirubin 1.2 mg/dL (0.15-1.2) 06/12/23 20: AST 16 U/L (0-40) 06/12/23 20: ALT 23 U/L (0-41) 06/12/23 20: Alkaline Phosphatase 65 U/L (40-130) 06/12/23 20: Total Protein 7.0 g/dL (6.6-8.7) 06/12/23 20:29 Albumin 4.6 g/dL (3.5-5.2) 06/12/23 20:29 Globulin 2.4 g/dL (1.3-4.6) 06/12/23 20:29 Lipase 64 U/L (13-60) H 06/12/23 20:29 Discharge Plan Discharge Patient Disposition: Home Clinical Impression: Epigastric abdominal pain Condition: Stable Prescriptions: New Carafate 1 gram tablet 1 g PO TID 10 Days Qty: 30 0RF No Action alprazolam 0.5 mg tablet 0.5 mg PO BID PRN (Reason: anxiety) Qty: 60 1RF fluoxetine [Prozac] 20 mg capsule 20 mg PO .morning Qty: 30 3RF Rx Instructions: Take one capsule every morning metoprolol succinate 25 mg tablet extended release 24 hr 25 mg PO DAILY Qty: 30 0RF Protonix 40 mg tablet,delayed release (DR/EC) 40 mg PO DAILY Qty: 60 0RF Discharge Orders: Discharge ED (Routine); Ordered 06/12/23 Ordered By: Darshan Suarez Discharge Diet: Usual diet Discharge Activity: Increase activity as tolerated Patient Instructions: Abdominal Pain (ED) Activity Restrictions/Additional Instructions: Carafate as prescribed. Continue your Protonix as usual. Plenty of fluids. Continue plan to follow-up with Dr. Mendoza next week. Return if you develop any new or worsening symptoms. Coding Level of Care Code ED Vice President [employer] for Joanie Finney
[2023-06-12 22:20] VITALS: BP 146/81; PULSE 71; RESP 16; TEMP 36.5; O2SAT 99
== END 2023-06-12 22:21 | disposition home or self-care (01) ==
PROVIDERS: Emergency Medicine; Emergency Provider Physician Assistant
DX: R10.13 Epigastric pain (principal); F17.220 Nicotine dependence, chewing tobacco, uncomplicated
CPT/HCPCS: 36415; 80053; 83690; 85025; 99283

== ENCOUNTER 2023-08-16 05:19 | Emergency (ER) | payer SELFPAY ==
[2023-08-16 05:26] VITALS: BP 124/84; PULSE 58; RESP 15; TEMP 36.4; O2SAT 99; BMI 25.1
[2023-08-16 05:32] VITALS: BP 129/83; PULSE 61; RESP 16; O2SAT 100
--- NOTE | 2023-08-16 05:39 | ED_ITS ---
Documented by User: Wilmer Solorzano DO 08/16/23 05:42 HPI - Abdominal Pain 2 General: Chief Complaint: Abdominal Pain Stated Complaint: Pain Upper ABD Time Seen by Provider: 08/16/23 05:30 History of Present Illness: Patient presents to the ER with complaints of recurring upper abdominal epigastric pain for the last 3 months. Patient said this pain is worse when he eats food. And nothing seems to make it better. Patient is also been having loose stools or diarrhea for this time. Patient has seen Dr. Mendoza for this epigastric abdominal pain and per his last note he was started on daily Protonix and 3 times daily Carafate with has improved the symptoms. He was post increase Protonix to twice a day and a were talking about getting an EGD. Patient says he is never set this up because he does not have insurance. 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 Physical Exam 2 Const: COMMON NORMALS: no acute distress, average body habitus, patient oriented x3, no limitations, healthy appearing, alert and well nourished HENMT: COMMON NORMALS: normocephalic, atraumatic, hearing grossly normal bilaterally, external ears normal, Normal external nose present, moist oral mucous membranes and oropharynx normal HEAD & SCALP: normocephalic and atraumatic NOSE: Normal external nose present EXTERNAL EAR: Yes external ears normal Neck/C-Spine: COMMON NORMALS: no JVD Chest: COMMONS NORMALS: normal inspection of the chest and normal palpation of entire chest wall Resp: COMMON NORMALS: normal respiratory effort, No retractions, No use of accessory muscles and clear to auscultation bilaterally AUSCULTATION: clear to auscultation bilaterally Cardio: COMMON NORMALS: no JVD, regular rate, regular rhythm, S1 normal heart sound present, S2 normal heart sound present, No gallops present (Cardio), No clicks present (Cardio), No murmurs present (Cardio) and No rub (Cardio) R ATE: regular rate RHYTHM: regular rhythm HEART SOUNDS: S1 normal heart sound present and S2 normal heart sound present GI: COMMON NORMALS: Normal to inspection, nondistended, normoactive bowel sounds present, Soft to palpation, No hepatosplenomegaly present and no masses; negative for non-tender (Tender over epigastric region) PALPATION: Yes Soft to palpation and Yes No hepatosplenomegaly present Neuro: COMMON NORMALS: patient oriented x3 SENSORIUM/ORIENTATION: Yes alert Course 2 Vital Signs: Vital signs: Vital Signs Temperature 97.6 F 08/16/23 05:26 Pulse Rate 52 L 08/16/23 06:32 Respiratory Rate 14 08/16/23 06:32 Blood Pressure 110/72 08/16/23 06:32 Pulse Oximetry 97 08/16/23 06:32 Oxygen Delivery Me thod Room Air 08/16/23 06:32 MDM - Abdominal Pain Medical Records I reviewed the patient's medical records. Lab Data I reviewed the patient's lab results. 08/16/23 05:35 08/16/23 06:16 Labs/Radiology: Laboratory Results WBC 5.94 10^3/uL (3.29-11.43) 08/16/23 05:35 RBC 5.40 10^6/uL (3.85-5.65) 08/16/23 05:35 Hgb 16.30 g/dL (11.27-16.99) 08/16/23 05:35 Hct 47.1 % (37-53) 08/16/23 05:35 MCV 87.2 fl (82-101) 08/16/23 05:35 MCH 30.2 pg (27-33) 08/16/23 05:35 MCHC 34.6 g/dL (30-55) 08/16/23 05:35 RDW 13.3 % (12.1-15.1) 08/16/23 05:35 Plt Count 196 10^3/cmm (157-399) 08/16/23 05:35 MPV 11.4 fL (7.4-10.4) H 08/16/23 05:35 Neut % (Auto) 54.3 % 08/16/23 05:35 Lymph % (Auto) 32.3 % 08/16/23 05:35 Dane % (Auto) 9.1 % 08/16/23 05:35 Eos % (Auto) 3.2 % 08/16/23 05:35 Baso % (Auto) 0.8 % 08/16/23 05:35 Neut # (Auto) 3.22 10^3/uL (1.8-7.7) 08/16/23 05:35 Lymph # (Auto) 1.9 10^3/uL (0.8-4.8) 08/16/23 05:35 Dane # (Auto) 0.5 10^3/uL (0.2-0.9) 08/16/23 05:35 Eos # (Auto) 0.2 10^3/uL (0.0-0.8) 08/16/23 05:35 Baso # (Auto) 0.1 10^3/uL (0.0-0.1) 08/16/23 05:35 Nucleated RBC % (auto) 0 % 08/16/23 05:35 Nucleated RBCs # 0.0 /100WBC 08/16/23 05:35 Sodium 139 mmol/L (136-145) 08/16/23 06:16 Potassium 3.7 mmol/L (3.5-5.1) 08/16/23 06:16 Chloride 104 mmol/L (98-107) 08/16/23 06:16 Carbon Dioxide 26 mmol/L (22-29) 08/16/23 06:16 Anion Gap 12.7 (5-19) 08/16/23 06:16 BUN 10 mg/dL (6-20) 08/16/23 06:16 Creatinine 1.0 mg/dL (0.7-1.2) 08/16/23 06:16 GFR Calculation 85.5 mL/min (90-130) L 08/16/23 06:16 Glucose 98 mg/dL (65-115) 08/16/23 06:16 Calculated Osmolality 287 mOsm/kg (285-295) 08/16/23 06:16 Calcium 8.5 mg/dL (8.5-10.5) 08/16/23 06:16 Magnesium 2.0 mg/dL (1.7-2.3) 08/16/23 06:16 Total Bilirubin 0.9 mg/dL (0.15-1.2) 08/16/23 06:16 AST 17 U/L (0-40) 08/16/23 06:16 ALT 25 U/L (0-41) 08/16/23 06:16 Alkaline Phosphatase 72 U/L (40-130) 08/16/23 06:16 Total Protein 6.4 g/dL (6.6-8.7) L 08/16/23 06:16 Albumin 4.0 g/dL (3.5-5.2) 08/16/23 06:16 Globulin 2.4 g/dL (1.3-4.6) 08/16/23 06:16 Lipase 36 U/L (13-60) 08/16/23 06:16 No radiology studies performed this visit Discharge Plan Discharge Patient Disposition: Home Clinical Impression: GERD (gastroesophageal reflux disease) Condition: Stable Prescriptions: New Carafate 1 gram tablet 1 g PO Q6H PRN (Reason: stomach upset) 56 Days Qty: 224 0RF No Action pantoprazole [Protonix] 40 mg tablet,delayed release (DR/EC) 40 mg PO BID 42 Days Qty: 84 1RF fluoxetine [Prozac] 20 mg capsule 20 mg PO .morning Qty: 30 3RF Rx Instructions: Take one capsule every morning alprazolam 1 mg tablet 1 mg PO BID Qty: 60 2RF Rx Instructions: Take one tablet at 8 am and 4 pm cyproheptadine 4 mg tablet 4 mg PO BEDTIME Qty: 30 2RF Rx Instructions: Take one tablet at bedtime acetaminophen 500 mg Capsule 1,000 mg PO QID PRN (Reason: Pain) Discharge Orders: Discharge ED (Routine); Ordered 08/16/23 Ordered By: Bret Holman Discharge Activity: Increase activity as tolerated Patient Instructions: Diet for Stomach Ulcers and Gastritis (ED), GERD (Gastroesophageal Reflux Disease) (ED), Opioid Safety, Pain Management Activity Restrictions/Additional Instructions: Thank you for choosing [facility] for your healthcare needs today. Please realize this is an emergency room and that we are providing you with a medical screening exam and this may not be complete and all inclusive of all the testing and or work up that you may need to determine your ailment or severity of your illness. It is very important that you follow up as instructed or that you return to the Emergency Department should you have concerns or if your condition changes or worsens in any way. Sign Out Sign Out Data: Patient Sign Out occurred on 08/16/23 at 06:04. Patient's care was discussed, and care was transferred from Wilmer Solorzano DO to Bert Holman DO. Coding Level of Care Code ED Shower Maid for Chg Fwd Documented by User: Bert Holman DO 08/16/23 07:50 HPI - Abdominal Pain 2 General: Chief Complaint: Abdominal Pain Stated Complaint: Pain Upper ABD Time Seen by Provider: 08/16/23 05:30 PFSH ED 2 PFSH: Medical History Psychiatric care Bereavement Sudden loss of father November 2020 Generalized anxiety disorder Panic disorder without agoraphobia Major depressive disorder, recurrent severe without psychotic features Social History Smoking and tobacco/nicotine status: current every day tobacco/nicotine user smokeless tobacco Alcohol intake: former Substance/Drug Use: never 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 Labs reviewed. Hemoglobin normal BUN normal lipase not elevated. Continue the pantoprazole he is already on twice daily. Will add Carafate for back to Dr. Mendoza. Lab Data 08/16/23 05:35 08/16/23 06:16 Labs/Radiology: Laboratory Results WBC 5.94 10^3/uL (3.29-11.43) 08/16/23 05:35 RBC 5.40 10^6/uL (3.85-5.65) 08/16/23 05:35 Hgb 16.30 g/dL (11.27-16.99) 08/16/23 05:35 Hct 47.1 % (37-53) 08/16/23 05:35 MCV 87.2 fl (82-101) 08/16/23 05:35 MCH 30.2 pg (27-33) 08/16/23 05:35 MCHC 34.6 g/dL (30-55) 08/16/23 05:35 RDW 13.3 % (12.1-15.1) 08/16/23 05:35 Plt Count 196 10^3/cmm (157-399) 08/16/23 05:35 MPV 11.4 fL (7.4-10.4) H 08/16/23 05:35 Neut % (Auto) 54.3 % 08/16/23 05:35 Lymph % (Auto) 32.3 % 08/16/23 05:35 Dane % (Auto) 9.1 % 08/16/23 05:35 Eos % (Auto) 3.2 % 08/16/23 05:35 Baso % (Auto) 0.8 % 08/16/23 05:35 Neut # (Auto) 3.22 10^3/uL (1.8-7.7) 08/16/23 05:35 Lymph # (Auto) 1.9 10^3/uL (0.8-4.8) 08/16/23 05:35 Dane # (Auto) 0.5 10^3/uL (0.2-0.9) 08/16/23 05:35 Eos # (Auto) 0.2 10^3/uL (0.0-0.8) 08/16/23 05:35 Baso # (Auto) 0.1 10^3/uL (0.0-0.1) 08/16/23 05:35 Nucleated RBC % (auto) 0 % 08/16/23 05:35 Nucleated RBCs # 0.0 /100WBC 08/16/23 05:35 Sodium 139 mmol/L (136-145) 08/16/23 06:16 Potassium 3.7 mmol/L (3.5-5.1) 08/16/23 06:16 Chloride 104 mmol/L (98-107) 08/16/23 06:16 Carbon Dioxide 26 mmol/L (22-29) 08/16/23 06:16 Anion Gap 12.7 (5-19) 08/16/23 06:16 BUN 10 mg/dL (6-20) 08/16/23 06:16 Creatinine 1.0 mg/dL (0.7-1.2) 08/16/23 06:16 GFR Calculation 85.5 mL/min (90-130) L 08/16/23 06:16 Glucose 98 mg/dL (65-115) 08/16/23 06:16 Calculated Osmolality 287 mOsm/kg (285-295) 08/16/23 06:16 Calcium 8.5 mg/dL (8.5-10.5) 08/16/23 06:16 Magnesium 2.0 mg/dL (1.7-2.3) 08/16/23 06:16 Total Bilirubin 0.9 mg/dL (0.15-1.2) 08/16/23 06:16 AST 17 U/L (0-40) 08/16/23 06:16 ALT 25 U/L (0-41) 08/16/23 06:16 Alkaline Phosphatase 72 U/L (40-130) 08/16/23 06:16 Total Protein 6.4 g/dL (6.6-8.7) L 08/16/23 06:16 Albumin 4.0 g/dL (3.5-5.2) 08/16/23 06:16 Globulin 2.4 g/dL (1.3-4.6) 08/16/23 06:16 Lipase 36 U/L (13-60) 08/16/23 06:16 Discharge Plan Discharge Patient Disposition: Home Clinical Impression: GERD (gastroesophageal reflux disease) Condition: Stable Prescriptions: New Carafate 1 gram tablet 1 g PO Q6H PRN (Reason: stomach upset) 56 Days Qty: 224 0RF No Action pantoprazole [Protonix] 40 mg tablet,delayed release (DR/EC) 40 mg PO BID 42 Days Qty: 84 1RF fluoxetine [Prozac] 20 mg capsule 20 mg PO .morning Qty: 30 3RF Rx Instructions: Take one capsule every morning alprazolam 1 mg tablet 1 mg PO BID Qty: 60 2RF Rx Instructions: Take one tablet at 8 am and 4 pm cyproheptadine 4 mg tablet 4 mg PO BEDTIME Qty: 30 2RF Rx Instructions: Take one tablet at bedtime acetaminophen 500 mg Capsule 1,000 mg PO QID PRN (Reason: Pain) Discharge Orders: Discharge ED (Routine); Ordered 08/16/23 Ordered By: Bert Holman Discharge Activity: Increase activity as tolerated Patient Instructions: Diet for Stomach Ulcers and Gastritis (ED), GERD (Gastroesophageal Reflux Disease) (ED), Opioid Safety, Pain Management Activity Restrictions/Additional Instructions: Thank you for choosing [facility] for your healthcare needs today. Please realize this is an emergency room and that we are providing you with a medical screening exam and this may not be complete and all inclusive of all the testing and or work up that you may need to determine your ailment or severity of your illness. It is very important that you follow up as instructed or that you return to the Emergency Department should you have concerns or if your condition changes or worsens in any way. Sign Out Sign Out Data: Patient Sign Out occurred on 08/16/23 at 06:04. Patient's care was discussed, and care was transferred from Wilmer Solorzano DO to Bert Holman DO. Coding Level of Care Code ED Shower Maid for Joanie Finney
[2023-08-16 05:45] LABS: Basophils # 0.1 10^3/uL (0.0-0.1); Basophils % 0.8 %; Eosinophils # 0.2 10^3/uL (0.0-0.8); Eosinophils % 3.2 %; Hematocrit 47.1 % (37-53); Lymphocytes # 1.9 10^3/uL (0.8-4.8); Lymphocytes % 32.3 %; Mean Corpuscular HGB Conc 34.6 g/dL (30-55); Mean Corpuscular Hemoglobin 30.2 pg (27-33); Mean Corpuscular Volume 87.2 fl (82-101); Mean Platelet Volume 11.4 fL (7.4-10.4); Monocytes # 0.5 10^3/uL (0.2-0.9); Monocytes % 9.1 %; Neutrophils # 3.22 10^3/uL (1.8-7.7); Neutrophils % 54.3 %; Nucleated Red Blood Cells % 0 %; Platelet Count 196 10^3/cmm (157-399); Red Cell Distribution Width 13.3 % (12.1-15.1); White Blood Count 5.94 10^3/uL (3.29-11.43)
[2023-08-16] MEDS: ondansetron 2 mg/ML SDV 2 mL 4 MG IVP (05:54)
[2023-08-16] MEDS: famotidine 20 mg/2 mL INJ 40 MG IVP (05:54)
[2023-08-16] MEDS: sodium chloride 0.9% 1,000 ML 999 ML IV (05:54)
[2023-08-16 06:02] VITALS: BP 110/77; PULSE 60; RESP 14; O2SAT 97
[2023-08-16 06:32] VITALS: BP 110/72; PULSE 52; RESP 14; O2SAT 97
[2023-08-16 06:37] LABS: Alanine Aminotransferase 25 U/L (0-41); Alkaline Phosphatase 72 U/L (40-130); Anion Gap 12.7 (5-19); Aspartate Amino Transferase 17 U/L (0-40); Blood Urea Nitrogen 10 mg/dL (6-20); Calcium 8.5 mg/dL (8.5-10.5); Carbon Dioxide 26 mmol/L (22-29); Chloride 104 mmol/L (98-107); Creatinine Clr Calc Pharmacy 107.8615; Globulin 2.4 g/dL (1.3-4.6); Glomerular Filtration Rate 85.5 mL/min (90-130); Glucose 98 mg/dL (65-115); Lipase 36 U/L (13-60); Osmolality Calculated 287 mOsm/kg (285-295); Potassium 3.7 mmol/L (3.5-5.1); Sodium 139 mmol/L (136-145); Total Bilirubin 0.9 mg/dL (0.15-1.2); Total Protein 6.4 g/dL (6.6-8.7)
== END 2023-08-16 06:53 | disposition home or self-care (01) ==
PROVIDERS: Emergency Medicine; Emergency Provider Family Medicine
DX: K21.9 Gastro-esophageal reflux disease without esophagitis (principal); F17.220 Nicotine dependence, chewing tobacco, uncomplicated
CPT/HCPCS: 36415; 80053; 83690; 83735; 85025; 96361; 96374; 96375; 99284; J2405; J3490; J7030

== ENCOUNTER 2023-09-27 07:07 | Emergency (ER) | payer SELFPAY ==
[2023-09-27 07:16] VITALS: BP 127/80; PULSE 69; RESP 17; TEMP 36.4; O2SAT 97
--- NOTE | 2023-09-27 07:31 | ECG_ITS ---
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 Measurements Intervals [place] Rate: 76 P: 47 [place]: 146 QRS: 50 QRSD: 93 T: 31 QT: 358 QTc: 404 Interpretive Statements SINUS RHYTHM INCOMPLETE RIGHT BUNDLE BRANCH BLOCK [90+ ms QRS DURATION, TERMINAL R IN V1/V2, 40+ ms S IN I/aVL/V4/V5/V6] Compared to ECG 06/01/2023 01:23:22 No significant changes Electronically Signed On 09-27-2023 21:33:34 CDT by Nikhil Garcia M.D. [email or web address]
--- NOTE | 2023-09-27 07:42 | XRR_ITS ---
PROCEDURE INFORMATION: Exam: XR Chest Exam date and time: 09/27/2023 8:03 AM Age: 33 years old Clinical indication: Cough and dyspnea; Additional info: Dyspnea/cough TECHNIQUE: Imaging protocol: Radiologic exam of the chest. Views: 1 view. COMPARISON: CR (CHEST, ) 06/01/2023 1:16 AM FINDINGS: Lungs: Unremarkable. No consolidation. Pleural spaces: Unremarkable. No pleural effusion. No pneumothorax. Heart/Mediastinum: Unremarkable. No cardiomegaly. Bones/joints: Unremarkable. XR/XR chest 1V portable [id number] IMPRESSION: No acute findings.
--- NOTE | 2023-09-27 07:42 | ED_ITS ---
HPI - Abdominal Pain 2 General: Chief Complaint: Abdominal Pain Stated Complaint: stomach pain, SOB Time Seen by Provider: 09/27/23 07:12 Source: patient Mode of arrival: ambulatory History of Present Illness: 33-year-old male presents emergency room complaining of abdominal pain. Patient has chronic abdominal pain has been here several times in the last few months laboratory tests have been negative each time he was to have reflux has been treated with PPI. He has not noticed anything that exacerbates or relieves it he has noticed a little bit of dysuria the last few weeks. Denies any fever sweats chills no hematochezia melena hematemesis or coffee-ground sees previously had an appendectomy. Chart reviewed previous ER visits reviewed as well. Patient denies regular use of alcohol. He has been referred to surgery and has endoscopy scheduled. MD elicited complaint: abdominal pain Onset (ago): month(s) (4) Pain Consistency: intermittent Location: Epigastric Quality: cramping Exacerbating factors: nothing Relieving factors: nothing Associated Symptoms: Reports heartburn; Denies anorexia, belching, bloating, change in bowel habits, change in stool character, chills, coffee ground emesis, constipation, GI cramping, diarrhea, dyspepsia, dysuria, excessive flatus, fever(s), hematochezia, hematuria, hematemesis, fecal incontinence, loose stools, melena, nausea, poor appetite, syncope and vomiting Review of Systems 2 Const: Denies: fever(s) or chills Card: Denies: chest pain or syncope Resp: Denies: dyspnea GI: Reports: abdominal pain and heartburn; Denies: nausea, vomiting, hematemesis, coffee ground emesis, diarrhea, constipation, bloating, GI cramping, belching, excessive flatus, fecal incontinence, change in bowel habits, change in stool character, hematochezia or melena : Denies: dysuria, urinary frequency, urinary urgency or hematuria Musc: Denies: neck pain or back pain Skin/Breast: Denies: rash PFSH ED 2 PFSH: Medical History Psychiatric care Bereavement Sudden loss of father November 2020 Generalized anxiety disorder Panic disorder without agoraphobia Major depressive disorder, recurrent severe without psychotic features Social History Smoking and tobacco/nicotine status: current every day tobacco/nicotine user smokeless tobacco Alcohol intake: former Substance/Drug Use: never 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 Physical Exam 2 Const: COMMON NORMALS: no acute distress GENERAL APPEARANCE: cooperative and comfortable ORIENTATION/CONSCIOUSNESS: Yes awake, Yes oriented to person, Yes oriented to place and Yes oriented to time HENMT: COMMON NORMALS: normocephalic, atraumatic and hearing grossly normal bilaterally HEAD & SCALP: normocephalic and atraumatic Resp: COMMON NORMALS: normal respiratory effort, No retractions, No use of accessory muscles and clear to auscultation bilaterally AUSCULTATION: clear to auscultation bilaterally Cardio: COMMON NORMALS: regular rate, regular rhythm and No murmurs present (Cardio) RATE: regular rate RHYTHM: regular rhythm GI: COMMON NORMALS: Soft to palpation and No hepatosplenomegaly present A USCULTATION: Yes normoactive bowel sounds PALPATION: Yes Soft to palpation, No Tenderness to palpation present (GI), No Guarding due to palpation present (GI) and Yes No hepatosplenomegaly present Extremity: COMMON NORMALS: normal to inspection, capillary refill normal, no clubbing, cyanosis or edema, no calf tenderness and no pedal edema Neuro: SENSORIUM/ORIENTATION: Yes oriented to person, Yes oriented to place and Yes oriented to time Skin: COMMON NORMALS: no rashes or lesions noted GENERAL SKIN EXAM: no rashes or lesions noted Course 2 Vital Signs: Vital signs: Vital Signs Temperature 97.6 F 09/27/23 07:16 Pulse Rate 69 09/27/23 07:16 Respiratory Rate 17 09/27/23 07:16 Blood Pressure 127/80 09/27/23 10:55 Pulse Oximetry 95 09/27/23 10:55 Oxygen Delivery Me thod Room Air 09/27/23 07:16 MDM - Abdominal Pain Medical Decision Making CT shows some cholelithiasis but does not really either clinically or on laboratory tests have signs of acute cholecystitis at this time. [place] not for HIDA scan here is an appointment see Dr. Mendoza for endoscopy which I think he should complete he is feeling better after the GI cocktail continue his PPIs. Set up to outpatient HIDA scan Medical Records I reviewed the patient's medical records. Lab Data I reviewed the patient's lab results. 09/27/23 07:39 09/27/23 07:39 Labs/Radiology: Radiology Impressions Chest X-Ray 09/27/23 07:42 IMPRESSION: No acute findings. Abdomen/Pelvis CT 09/27/23 07:49 IMPRESSION: 1. No acute findings. 2. Cholelithiasis without CT evidence of cholecystitis 3. Evidence of prior appendectomy without complication. 4. Chronic findings as above Laboratory Results WBC 6.47 10^3/uL (3.29-11.43) 09/27/23 07:39 RBC 5.18 10^6/uL (3.85-5.65) 09/27/23 07:39 Hgb 15.10 g/dL (11.27-16.99) 09/27/23 07:39 Hct 45.0 % (37-53) 09/27/23 07:39 MCV 86.9 fl (82-101) 09/27/23 07:39 MCH 29.2 pg (27-33) 09/27/23 07:39 MCHC 33.6 g/dL (30-55) 09/27/23 07:39 RDW 13.2 % (12.1-15.1) 09/27/23 07:39 Plt Count 194 10^3/cmm (157-399) 09/27/23 07:39 MPV 11.8 fL (7.4-10.4) H 09/27/23 07:39 Neut % (Auto) 55.2 % 09/27/23 07:39 Lymph % (Auto) 30.3 % 09/27/23 07:39 [place] % (Auto) 10.5 % 09/27/23 07:39 Eos % (Auto) 2.5 % 09/27/23 07:39 Baso % (Auto) 0.9 % 09/27/23 07:39 Neut # (Auto) 3.57 10^3/uL (1.8-7.7) 09/27/23 07:39 Lymph # (Auto) 2.0 10^3/uL (0.8-4.8) 09/27/23 07:39 [place] # (Auto) 0.7 10^3/uL (0.2-0.9) 09/27/23 07:39 Eos # (Auto) 0.2 10^3/uL (0.0-0.8) 09/27/23 07:39 Baso # (Auto) 0.1 10^3/uL (0.0-0.1) 09/27/23 07:39 Nucleated RBC % (auto) 0 % 09/27/23 07:39 Nucleated RBCs # 0.0 /100WBC 09/27/23 07:39 Sodium 141 mmol/L (136-145) 09/27/23 07:39 Potassium 4.1 mmol/L (3.5-5.1) 09/27/23 07:39 Chloride 103 mmol/L (98-107) 09/27/23 07:39 Carbon Dioxide 27 mmol/L (22-29) 09/27/23 07:39 Anion Gap 15.1 (5-19) 09/27/23 07:39 BUN 16 mg/dL (6-20) 09/27/23 07:39 Creatinine 1.0 mg/dL (0.7-1.2) 09/27/23 07:39 GFR Calculation 85.0 mL/min (90-130) L 09/27/23 07:39 Glucose 111 mg/dL (65-115) 09/27/23 07:39 Calculated Osmolality 294 mOsm/kg (285-295) 09/27/23 07:39 Calcium 9.3 mg/dL (8.5-10.5) 09/27/23 07:39 Total Bilirubin 1.0 mg/dL (0.15-1.2) 09/27/23 07:39 AST 24 U/L (0-40) 09/27/23 07:39 ALT 44 U/L (0-41) H 09/27/23 07:39 Alkaline Phosphatase 71 U/L (40-130) 09/27/23 07:39 Total Protein 6.9 g/dL (6.6-8.7) 09/27/23 07:39 Albumin 4.5 g/dL (3.5-5.2) 09/27/23 07:39 Globulin 2.4 g/dL (1.3-4.6) 09/27/23 07:39 Lipase 40 U/L (13-60) 09/27/23 07:39 Urine Color Yellow (Yellow) 09/27/23 08:40 Urine Appearance Clear (CLEAR) 09/27/23 08:40 Urine pH 8 (5-7) H 09/27/23 08:40 Ur Specific Ashley 1.010 (1.005-1.030) 09/27/23 08:40 Urine Protein Neg (Negative) 09/27/23 08:40 Urine Glucose (UA) Norm (Normal) 09/27/23 08:40 Urine Ketones Negative (Negative) 09/27/23 08:40 Urine Blood Neg (Negative) 09/27/23 08:40 Urine Nitrate Negative (Negative) 09/27/23 08:40 Urine Bilirubin Neg (Negative) 09/27/23 08:40 Prot Sulfosalicylic Acd Negative (Negative) 09/27/23 08:40 Urine Urobilinogen Norm mg/dL (Negative) 09/27/23 08:40 Ur Leukocyte Esterase Negative (Negative) 09/27/23 08:40 All radiology interpretation(s) finalized by discharge Discharge Plan Discharge Patient Disposition: Home Clinical Impression: Abdominal pain, RUQ, Chronic GERD, Biliary colic, Cholelithiases Condition: Stable Prescriptions: No Action alprazolam 1 mg tablet 1 mg PO BID Qty: 60 3RF Rx Instructions: Take one tablet twice per day cyproheptadine 4 mg tablet 4 mg PO BEDTIME Qty: 30 3RF Rx Instructions: Take one tablet at bedtime fluoxetine [Prozac] 10 mg capsule 10 mg PO .morning Qty: 30 3RF Rx Instructions: Take one capsule every morning with 20 mg capsule, total dose 30 mg fluoxetine [Prozac] 20 mg capsule 20 mg PO .morning Qty: 30 3RF Rx Instructions: Take one capsule every morning with 10 mg capsule, total dose 30 mg acetaminophen 500 mg Capsule 1,000 mg PO QID PRN (Reason: Pain) pantoprazole [Protonix] 40 mg tablet,delayed release (DR/EC) 40 mg PO BID 42 Days Qty: 84 1RF Carafate 1 gram tablet 1 g PO Q6H PRN (Reason: stomach upset) 56 Days Qty: 224 0RF Discharge Orders: Discharge ED (Routine); Ordered 09/27/23 Ordered By: Bert Holman Referrals: Silvio Hoang MD [Primary Care Provider] - Patient Instructions: Abdominal Pain (ED), Opioid Safety, Pain Management Activity Restrictions/Additional Instructions: Thank you for choosing [facility] for your healthcare needs today. It is very important that you follow up as instructed or that you return to the Emergency Department should you have concerns or if your condition changes or worsens in any way. You are seen today with abdominal pain. CT did not show any acute abnormalities you do have some stones in your gallbladder (cholelithiasis). Will set you up for a nuclear medicine scan to evaluate for biliary dyskinesia. Follow-up with Dr. Mendoza as scheduled for the scopes of your stomach and colon he can also follow-up with your HIDA scan. Avoid fatty foods fried foods greasy foods carbonated beverages continue to take your pantoprazole regularly. Also avoid alcohol chocolate. Coding Level of Care Code ED Washing And Screening Plant Supervisor for Joanie Finney
--- NOTE | 2023-09-27 07:49 | CTR_ITS ---
PROCEDURE INFORMATION: Exam: CT Abdomen And Pelvis With Contrast Exam date and time: 09/27/2023 8:08 AM Age: 33 years old Clinical indication: Abdominal pain; Epigastric; Prior surgery; Surgery date: 6+ months; Surgery type: Appy; Additional info: Abd pain TECHNIQUE: Imaging protocol: Computed tomography of the abdomen and pelvis with contrast. Radiation optimization: All CT scans at this facility use at least one of these dose optimization techniques: automated exposure control; mA and/or kV adjustment per patient size (includes targeted exams where dose is matched to clinical indication); or iterative reconstruction. Contrast material: OMNI 350; Contrast volume: 100 ml; Contrast route: INTRAVENOUS (IV); COMPARISON: CR (CHEST, ) 09/27/2023 8:03 AM RADIATION DOSE METRICS: Total DLP (mGy-cm): 505.31 FINDINGS: Liver: Normal. No mass. Gallbladder and bile ducts: Gallbladder is filled with numerous lamellated gallstones measuring up to [address] evidence of cholecystitis. Pancreas: Normal. No ductal dilation. Spleen: Normal. No splenomegaly. Adrenal glands: Normal. No mass. Kidneys and ureters: Normal. No hydronephrosis. Stomach and bowel: Sigmoid diverticulosis without evidence of diverticulitis.. No obstruction. No mucosal thickening. Appendix: Suture at the cecum compatible with history of prior appendectomy. No pericecal inflammatory change. Intraperitoneal space: Unremarkable. No free air. No significant fluid collection. Vasculature: Unremarkable. No abdominal aortic aneurysm. Lymph nodes: Mildly prominent bilateral inguinal benign/reactive appearing nodes feature prominent fatty staci. Several shotty nonspecific mid abdominal lymph nodes are present . No adenopathy. Urinary bladder: Unremarkable as visualized. Reproductive: Unremarkable as visualized. Bones/joints: Unremarkable. No acute fracture. Soft tissues: Mildly prominent fat within the right inguinal canal; correlate for possible clinically significant hernia. CT/CT abdomen pelvis w con* [id number] IMPRESSION: 1. No acute findings. 2. Cholelithiasis without CT evidence of cholecystitis 3. Evidence of prior appendectomy without complication. 4. Chronic findings as above
[2023-09-27 08:00] VITALS: BP 127/80; O2SAT 95
[2023-09-27] MEDS: sodium chloride 0.9% 1,000 ML 999 ML IV (08:04)
[2023-09-27] MEDS: ondansetron 2 mg/ML SDV 2 mL 4 MG IVP (08:07)
[2023-09-27 08:33] LABS: Basophils # 0.1 10^3/uL (0.0-0.1); Basophils % 0.9 %; Eosinophils # 0.2 10^3/uL (0.0-0.8); Eosinophils % 2.5 %; Lymphocytes % 30.3 %; Mean Corpuscular HGB Conc 33.6 g/dL (30-55); Mean Corpuscular Hemoglobin 29.2 pg (27-33); Mean Corpuscular Volume 86.9 fl (82-101); Mean Platelet Volume 11.8 fL (7.4-10.4); Monocytes # 0.7 10^3/uL (0.2-0.9); Monocytes % 10.5 %; Neutrophils # 3.57 10^3/uL (1.8-7.7); Neutrophils % 55.2 %; Nucleated Red Blood Cells % 0 %; Platelet Count 194 10^3/cmm (157-399); Red Blood Count 5.18 10^6/uL (3.85-5.65); Red Cell Distribution Width 13.2 % (12.1-15.1); White Blood Count 6.47 10^3/uL (3.29-11.43)
[2023-09-27] MEDS: lidocaine 2% viscous 15 ML, aluminum-mag hydrox-simethicon 30 ML, sucralfate oral liq 1 GM PO (08:45)
[2023-09-27 08:55] VITALS: BP 127/80; O2SAT 94
[2023-09-27 08:55] LABS: Alanine Aminotransferase 44 U/L (0-41); Albumin Level 4.5 g/dL (3.5-5.2); Alkaline Phosphatase 71 U/L (40-130); Anion Gap 15.1 (5-19); Aspartate Amino Transferase 24 U/L (0-40); Blood Urea Nitrogen 16 mg/dL (6-20); Calcium 9.3 mg/dL (8.5-10.5); Carbon Dioxide 27 mmol/L (22-29); Chloride 103 mmol/L (98-107); Creatinine Clr Calc Pharmacy 106.8439; Globulin 2.4 g/dL (1.3-4.6); Glucose 111 mg/dL (65-115); Lipase 40 U/L (13-60); Osmolality Calculated 294 mOsm/kg (285-295); Potassium 4.1 mmol/L (3.5-5.1); Sodium 141 mmol/L (136-145); Total Protein 6.9 g/dL (6.6-8.7)
[2023-09-27 09:05] LABS: Add Urine Microscopic? NO; Charge for UA Resulting for Rev
[2023-09-27 09:15] LABS: Bilirubin Urine Neg (Negative); Blood Urine Neg (Negative); Glucose Urine UA Norm (Normal); Ketones Urine Negative (Negative); Leukocyte Esterase Urine Negative (Negative); Nitrate Urine Negative (Negative); Protein Urine Neg (Negative); Sulfosalicylic Acid Urine Negative (Negative); Urine Appearance Clear (CLEAR); Urine Color Yellow (Yellow); Urobilinogen Urine Norm (Negative); pH Urine 8 (5-7)
[2023-09-27 10:55] VITALS: BP 127/80; O2SAT 95
--- NOTE | 2023-09-29 07:20 | DCPLANNER ---
Patient was seen in the er 09/26. faxed hida order to scheduling and message gen surg for er f/u appt
== END 2023-09-27 11:08 | disposition home or self-care (01) ==
PROVIDERS: Emergency Provider Family Medicine; PCP Family Medicine
DX: K80.20 Calculus of gallbladder without cholecystitis without obstruction (principal); K21.9 Gastro-esophageal reflux disease without esophagitis; F17.220 Nicotine dependence, chewing tobacco, uncomplicated
CPT/HCPCS: 36415; 71045; 74177; 80053; 81003; 83690; 85025; 93005; 96374; 99285; J2405; J7030; Q9967

== ENCOUNTER 2023-10-07 07:40 | Outpatient (CLI) | payer SELFPAY ==
--- NOTE | 2023-10-07 08:00 | NM_ITS ---
WS: [id number] NUCLEAR MEDICINE HIDA SCAN CLINICAL INFORMATION: RUQ PAIN X 6 MONTHS TECHNIQUE: Following intravenous administration of 7.6 mCi of technetium 99m mebrofenin, images of th e abdomen were obtained over the course of 60 minutes. Next, gallbladder ejection fraction was determ ined by obtaining preprandial and one-hour postprandial images of the gallbladder following oral crystal stion of Ensure. COMPARISON: None. FINDINGS: Normal hepatic uptake at 5 minutes. Normal hepatic excretion. Normal common bile duct and small bowel activity. Gallbladder is visualized by 40 minutes. No evidence of acute cholecystitis. Gallbladder ejection fraction is 68% within normal limits. No evidence of chronic cholecystitis. NM/NM hepatobiliary w phar* [id number] IMPRESSION: No evidence of acute or chronic cholecystitis.
== END 2023-10-07 07:41 | disposition home or self-care (01) ==
PROVIDERS: PCP Family Medicine; Visit Provider Family Medicine
DX: R07.89 Other chest pain (principal); R10.9 Unspecified abdominal pain
CPT/HCPCS: 78227; A9537

== ENCOUNTER 2023-10-19 19:19 | Emergency (ER) | payer SELFPAY ==
[2023-10-19 19:31] VITALS: BP 129/78; PULSE 80; RESP 14; TEMP 36.6; O2SAT 97
--- NOTE | 2023-10-19 19:39 | XRR_ITS ---
PROCEDURE INFORMATION: Exam: XR Right Hand Exam date and time: 10/19/2023 8:00 PM Age: 33 years old Clinical indication: Injury or trauma; Other: Crushing injury to; Right; Patient HX: RT hand pain; Attn to 4th digit TECHNIQUE: Imaging protocol: Radiologic exam of the right hand. Views: 3 or more views. COMPARISON: No relevant prior studies available. FINDINGS: Bones/joints: No acute fracture. No dislocation. Normal bone mineralization. No joint effusion. Joint spaces are maintained. Soft tissues: No soft tissue swelling. No radiopaque foreign body. XR/XR hand RT min 3V* [id number] IMPRESSION: Negative radiographs of the right hand. Followup imaging recommended in 7-14 days if clinical concern for fracture persists.
--- NOTE | 2023-10-19 20:27 | W.ED.EXTPRO ---
HPI - Extremity Problem General: Chief complaint: Extremity Injury, Upper Stated complaint: right hand injury Time Seen by Provider: 10/19/23 19:46 History of Present Illness: 33-year-old male patient comes in today for injury to the right index finger. Patient reports he got it wrapped in a shirin and felt this morning causing pain and injury. Patient has a noticeable abrasion to the radial aspect of the finger and some mild swelling. No redness. Patient endorses some numbness to the fingertip. 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 Physical Exam Const: COMMON NORMALS: alert HENMT: COMMON NORMALS: normocephalic HEAD & SCALP: normocephalic Neck/C-Spine: COMMON NORMALS: full ROM Resp: COMMON NORMALS: normal respiratory effort Cardio: COMMON NORMALS: regular rate RATE: regular rate Back/Pelvis: COMMON NORMALS: thoracic and lumbar spine normal to inspection Extremity: RIGHT UPPER EXTREMITY: Yes hand & digits (Abrasion ring finger, mild swelling and ecchymosis PIP joint) Neuro: SENSORIUM/ORIENTATION: Yes alert Skin: TRAUMA: abrasion (Superficial right index finger) Course Vital Signs: Vital signs: Vital Signs Temperature 98 F 10/19/23 19:31 Pulse Rate 80 10/19/23 19:31 Respiratory Rate 14 10/19/23 19:31 Blood Pressure 129/78 10/19/23 19:31 Pulse Oximetry 97 10/19/23 19:31 MDM - Extremity (Nontraumatic) Medical Decision Making Patient comes in today for injury to the right index finger. On exam patient has an abrasion and some mild swelling to the PIP joint of the finger. Differential diagnosis includes fracture, sprain, abrasion. X-ray was negative for any bony abnormality. Abrasion was cleaned and bacitracin ointment applied to it finger was then rohini taped to the middle finger. Reviewed exam with patient with recommendation for treatment and follow-up. Patient reported understanding. XR interpretation done by ED provider, pending radiology final review Discharge Plan Discharge Patient Disposition: Home Clinical Impression: Finger sprain Qualifiers: Encounter type: initial encounter Finger: ring finger Sprain of finger site: interphalangeal joint Laterality: right Qualified Code(s): S63.634A - Sprain of interphalangeal joint of right ring finger, initial encounter Abrasion of finger Qualifiers: Encounter type: initial encounter Qualified Code(s): S60.419A - Abrasion of unspecified finger, initial encounter Condition: Stable Prescriptions: No Action alprazolam 1 mg tablet 1 mg PO BID Qty: 60 3RF Rx Instructions: Take one tablet twice per day cyproheptadine 4 mg tablet 4 mg PO BEDTIME Qty: 30 3RF Rx Instructions: Take one tablet at bedtime fluoxetine [Prozac] 10 mg capsule 10 mg PO .morning Qty: 30 3RF Rx Instructions: Take one capsule every morning with 20 mg capsule, total dose 30 mg fluoxetine [Prozac] 20 mg capsule 20 mg PO .morning Qty: 30 3RF Rx Instructions: Take one capsule every morning with 10 mg capsule, total dose 30 mg acetaminophen 500 mg Capsule 1,000 mg PO QID PRN (Reason: Pain) pantoprazole [Protonix] 40 mg tablet,delayed release (DR/EC) 40 mg PO BID 42 Days Qty: 84 1RF Discharge Orders: Discharge ED (Routine); Ordered 10/19/23 Ordered By: Kan Cárdenas Referrals: Silvio Hoang MD [Primary Care Provider] - Patient Instructions: Opioid Safety, Pain Management Coding Level of Care Code ED Injection Molding Operator for Joanie Finney
[2023-10-19] MEDS: bacitracin ointment Pkt 1 EACH TOPICAL (20:58)
== END 2023-10-19 21:12 | disposition home or self-care (01) ==
PROVIDERS: Emergency Provider Nurse Practitioner Family; PCP Family Medicine
DX: S63.634A Sprain of interphalangeal joint of right ring finger, initial encounter (principal); S60.410A Abrasion of right index finger, initial encounter; F17.220 Nicotine dependence, chewing tobacco, uncomplicated; W31.89XA Contact with other specified machinery, initial encounter
CPT/HCPCS: 73130; 99283

== ENCOUNTER 2023-10-21 09:17 | Day surgery (SDC) | payer SELFPAY ==
[2023-10-21] VITALS (13 sets, daily range): BP systolic 122–141; BP diastolic 69–90; PULSE 60–81; RESP 16–18; TEMP 36.3–36.4; O2SAT 96–100; BMI 25.1
--- NOTE | 2023-10-21 09:38 | PM.HP ---
Providers/Chief Complaint Primary Care Provider: Silvio Hoang MD Chief Complaint: K80.20 History of Present Illness Darshan Lewis is a 33 year old male Review of Systems General: Reports: 10 or more systems reviewed and unremarkable except in HPI and below Medications/Allergies Home Medications Medication Instructions Recorded Confirmed Last Taken Type acetaminophen 500 mg capsule 1,000 mg PO QID PRN Pain 07/21/23 10/20/23 10/19/23 History alprazolam 1 mg tablet 1 mg PO BID #60 tabs 08/21/23 10/20/23 10/20/23 Rx cyproheptadine 4 mg tablet 4 mg PO BEDTIME #30 tabs 08/21/23 10/20/23 10/19/23 Rx fluoxetine 10 mg capsule (Prozac) 10 mg PO .morning #30 caps 08/21/23 10/20/23 10/20/23 Rx fluoxetine 20 mg capsule (Prozac) 20 mg PO .morning #30 caps 08/21/23 10/20/23 10/20/23 Rx pantoprazole 40 mg tablet,delayed 40 mg PO BID 6 weeks #84 tabs 09/18/23 10/20/23 10/20/23 Rx release (Protonix) Allergies Allergy/AdvReac Type Severity Reaction Status Date / Time venlafaxine [From Effexor] Allergy ADR-Itching Verified 10/20/23 10:28 PFSH Acute PFSH: Medical History Psychiatric care Bereavement Sudden loss of father November 2020 Generalized anxiety disorder Panic disorder without agoraphobia Major depressive disorder, recurrent severe without psychotic features Social History Smoking and tobacco/nicotine status: current every day tobacco/nicotine user smokeless tobacco Alcohol intake: former Substance/Drug Use: never 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 He is understanding of the risks and wishes to proceed. Attestations Medical Necessity Statement*: Home Coding Level of Care Code Acute Code for [facility] Diagnoses Symptomatic cholelithiasis K80.20
--- NOTE | 2023-10-21 09:44 | P.ANESASSM_ITS ---
Pre-Anesthetic Assessment Height/Weight: Height 1.75 m Weight 77.111 kg Temp Pulse Resp BP Pulse Ox O2 Del Method 97.4 F L 64 18 137/90 99 Room Air 10/21/23 09:32 10/21/23 09:32 10/21/23 09:32 10/21/23 09:32 10/21/23 09:32 10/21/23 09:33 Operation Date: 10/21/23 10:55 Proposed Procedures p Laparoscopic Cholecystectomy 27572, K80.20(Not Applicable) - Burke Mendoza DO Familial anesthetic complications: None Was Beta Echo taken within 24 hours: N/A Was Clonidine taken within 24 hours: N/A Last intake: Intake Last Liquid Date 10/20/23 Last Liquid Time 22:30 Last Solid Date 10/20/23 Last Solid Time 17:00 Social No alcohol and No tobacco Exam alert, oriented x 3, clear to auscultation bilaterally and regular rate & rhythm Airway Mallampati: Class II Dentition: chipped (multiple ) GI Gastroesophageal Reflux Disease Neuropsych Anxiety and Depression Anesthetic Plan ASA status: 2 Anesthesia: General Risk of > 500 ml blood loss (7ml/kg in children): No Medications/Allergies Home Medications Medication Instructions Recorded Confirmed Last Taken Type acetaminophen 500 mg capsule 1,000 mg PO QID PRN Pain 07/21/23 10/20/23 10/19/23 History alprazolam 1 mg tablet 1 mg PO BID #60 tabs 08/21/23 10/20/23 10/20/23 Rx cyproheptadine 4 mg tablet 4 mg PO BEDTIME #30 tabs 08/21/23 10/20/23 10/19/23 Rx fluoxetine 10 mg capsule (Prozac) 10 mg PO .morning #30 caps 08/21/23 10/20/23 10/20/23 Rx fluoxetine 20 mg capsule (Prozac) 20 mg PO .morning #30 caps 08/21/23 10/20/23 10/20/23 Rx pantoprazole 40 mg tablet,delayed 40 mg PO BID 6 weeks #84 tabs 09/18/23 10/20/23 10/20/23 Rx release (Protonix) Allergies Allergy/AdvReac Type Severity Reaction Status Date / Time venlafaxine [From Effexor] Allergy ADR-Itching Verified 10/20/23 10:28 [facility] Anesthesia Medical History Psychiatric care Bereavement Sudden loss of father November 2020 Generalized anxiety disorder Panic disorder without agoraphobia Major depressive disorder, recurrent severe without psychotic features Social History Smoking and tobacco/nicotine status: current every day tobacco/nicotine user smokeless tobacco Alcohol intake: former Substance/Drug Use: never 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
[2023-10-21] MEDS: sodium chloride 0.9% 1,000 ML 30 ML IV (09:50)
[2023-10-21] MEDS: ceFAZolin 2,000 mg SDV 2000 MG IVP (10:16)
[2023-10-21] MEDS: lidocaine-epi 2% PF 1:200,000 20 mL SDV 10 ML XX (10:46)
--- NOTE | 2023-10-21 11:10 | P.OP_ITS ---
Operative Report Date of procedure: October 21, 2023 Surgeon: Burke Mendoza DO Brief History: Pleasant 33-year-old gentleman with symptomatic cholelithiasis. Laparoscopic cholecystectomy was indicated. The risks and benefits of the procedure, including but not limited to, bleeding, infection, scar, numbness, pain, damage to surrounding structures, damage to common bile duct requiring additional surgery, conversion to an open procedure, were explained to the patient. He is understanding of the risks and wishes to proceed. Procedure: Preoperative diagnosis: Symptomatic cholelithiasis Postoperative diagnosis: Same Procedure performed: Laparoscopic cholecystectomy Surgeon: Dr. Burke Mendoza DO Estimated blood loss: 5 mL Specimens: Gallbladder to pathology Complications: None apparent Description of procedure: Patient was wheeled into the operative room and placed on the OR table in a supine position. Abdomen was inspected prepped and draped in usual sterile fashion. Time-out was performed and all present were in agreement. A 15 blade scalp was used to make a stab incision in the left upper quadrant and intra- abdominal insufflation was achieved using a Veress needle. After localizing the tissue incisions were made and a 5 millimeter trocar was placed into the umbilicus as well as 2 in the right upper quadrant. A 12 millimeter trocar was placed in the epigastrium. Gallbladder was grasped and elevated. The triangle of Calot was carefully dissected using blunt dissection and electrocautery until the triangle of Calot clearly identified. The cystic duct was clipped proximally and double clipped distally. The duct was then ligated proximally. The cystic artery was doubly clipped and ligated. The gallbladder was then removed from the liver bed using electrocautery. The gallbladder was removed from the abdomen using an Endo-Catch bag through the epigastric incision. Gallbladder was full of multiple large stones and the epigastric incision had to be extended in order to remove the gallbladder. The liver bed was inspected and no bleeding was seen. The abdomen was irrigated and suctioned. All ports removed. Skin was washed and dried. Incisions were closed with 4-0 Monocryl in a subcuticular interrupted fashion. Skin glue was applied. Patient tolerated the procedure well.
[2023-10-21] MEDS: fentaNYL 50 mcg/mL INJ 2mL IVP (11:25)
[2023-10-21] MEDS: HYDROcodone-acetaminophen 7.5-325 mg Tablet 1 TAB PO (12:05)
--- NOTE | 2023-10-21 12:40 | ANE.PACU2 ---
Inpatient post-anesthesia follow up: Airway intact: Yes Vital signs: Temperature 97.4 F Pulse Rate 68 Respiratory Rate 17 Blood Pressure 122/69 Pulse Oximetry 98 Oxygen Delivery Me thod Room Air Oxygen Flow Rate 6 Fraction of Inspir ed Oxygen Hydration adequate: Yes Nausea and vomiting: No Pain level: 1 Mental status: Baseline
== END 2023-10-21 12:40 | disposition home or self-care (01) ==
PROVIDERS: PCP Family Medicine; Visit Provider Surgery
PROC: 0FT44ZZ Resection of Gallbladder, Percutaneous Endoscopic Approach (ICD-10-PCS; CPT 47562; principal; 2023-10-21 10:55)
DX: K80.10 Calculus of gallbladder with chronic cholecystitis without obstruction (principal); K21.9 Gastro-esophageal reflux disease without esophagitis; F17.200 Nicotine dependence, unspecified, uncomplicated
CPT/HCPCS: 47562; 88304; J0330; J0690; J1100; J1885; J2250; J2405; J2704; J2710; J3010; J3490; J7030

== ENCOUNTER 2024-03-29 13:52 | Emergency (ER) | payer SELFPAY ==
[2024-03-29 13:55] VITALS: BP 133/84; PULSE 85; RESP 16; TEMP 36.7; O2SAT 97; BMI 26.6
--- NOTE | 2024-03-29 14:01 | ECG_ITS ---
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 Measurements Intervals [place] Rate: 87 P: 44 CO: 135 QRS: 44 QRSD: 97 T: 30 QT: 318 QTc: 383 Interpretive Statements SINUS RHYTHM Compared to ECG 09/27/2023 07:31:13 Incomplete right bundle-branch block no longer present Electronically Signed On 03-29-2024 19:23:38 TECHNICAL SERVICES LIBRARIAN by Zahra Pugh M.D. [email or web address]
--- NOTE | 2024-03-29 18:43 | XRR_ITS ---
PROCEDURE INFORMATION: Exam: XR Chest Exam date and time: 03/29/2024 6:52 PM Age: 33 years old Clinical indication: Pain; On breathing; Additional info: Right chest wall pain TECHNIQUE: Imaging protocol: Radiologic exam of the chest. Views: 1 view. COMPARISON: CR (CHEST, ) 06/01/2023 1:16 AM FINDINGS: Lungs: No focal consolidation. Pleural spaces: No evidence of pneumothorax. No evidence of pleural effusion. Heart/Mediastinum: Cardiomediastinal silhouette is within normal limits. Bones/joints: No evidence of acute osseous abnormality. XR/XR chest 1V portable [id number] IMPRESSION: 1. No acute cardiopulmonary abnormality.
--- NOTE | 2024-03-29 18:44 | W.ED.BACK ---
HPI - Back Pain/Injury General: Chief Complaint: Back Pain/Injury Stated Complaint: SOB, pain in neck ,headache Time Seen by Provider: 03/29/24 18:36 Source: patient Mode of arrival: ambulatory Limitations: no limitations History of Present Illness: Patient is a 33-year-old male with no pertinent past medical history reporting to the emergency department with a couple of days of back pain. 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 Pain onset was gradually, initially was to the right parathoracic region but does radiate ventrally along the right rib cage and up to his neck. States the pain has been as severe as 10/10, does ease up after resting. Specifically it is worsened with movement of his neck as well as deep breathing, which has caused him to take shallower breaths. He is only taken Tylenol for his pain. He has never had any pain like this before. He denies any chest pain, syncope, lightheadedness/dizziness, hemoptysis, or other symptoms at this time. Right now he is breathing 97% and comfortably on room air. The rest of his vitals were normal. MD elicited complaint: back pain Onset (ago): day(s) (2) Timing: constant and progressively worsening Severity: severe Pain scale (0-10): 10 Location: right upper back Radiation: neck and chest Exacerbating factors: movement and deep breaths Relieving factors: immobilization Associated symptoms: Deny abdominal pain, chills, fever(s), nausea or vomiting Treatments prior to arrival: acetaminophen Related Data Home Medications Medication Instructions Recorded Confirmed acetaminophen 500 mg capsule 1,000 mg PO QID PRN Pain 07/21/23 01/07/24 Previous Rx's Medication Instructions Recorded docusate sodium 100 mg capsule 100 mg PO BID #14 caps 10/21/23 (Colace) cyproheptadine 4 mg tablet 4 mg PO BEDTIME #30 tabs 01/07/24 fluoxetine 10 mg capsule (Prozac) 10 mg PO .morning #30 caps 01/07/24 fluoxetine 20 mg capsule (Prozac) 20 mg PO .morning #30 caps 01/07/24 alprazolam 1 mg tablet 1 mg PO TID #90 tabs 02/02/24 pantoprazole 40 mg tablet,delayed 40 mg PO BID 6 weeks #84 tabs 03/04/24 release (Protonix) cyclobenzaprine 10 mg tablet 10 mg PO TID #15 tabs 03/29/24 prednisone 20 mg tablet 40 mg (2 x 20 mg) PO ONCE 5 days 03/29/24 #10 tabs Allergies Allergy/AdvReac Type Severity Reaction Status Date / Time venlafaxine [From Effexor] Allergy ADR-Itching Verified 03/29/24 14:01 Review of Systems General: Reports: 10 or more systems reviewed and unremarkable except in HPI and below Const: Denies: fever(s) or chills Card: Denies: chest pain Resp: Denies: dyspnea or productive cough GI: Denies: abdominal pain, nausea, vomiting or diarrhea : Denies: flank pain Musc: Reports: neck pain, back pain and other (Right rib pain); Denies: extremity pain, extremity swelling, joint pain, joint swelling, joint redness, joint warmth, limited range of motion or muscle weakness Skin/Breast: Denies: rash Neuro: Denies: headache(s), numbness in extremities or weakness in extremities PFSH ED PFSH: Medical History Psychiatric care Bereavement Sudden loss of father November 2020 Generalized anxiety disorder Panic disorder without agoraphobia Major depressive disorder, recurrent severe without psychotic features Surgical History Hx laparoscopic cholecystectomy 10/21/23 DR Mendoza Family History Mother Diabetes Father Diabetes Social History Smoking and tobacco/nicotine status: current every day tobacco/nicotine user smokeless tobacco Alcohol intake: former Substance/Drug Use: never 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 He is covered in charcoal HENMT: COMMON NORMALS: normocephalic and atraumatic HEAD & SCALP: normocephalic and atraumatic Eye: COMMON NORMALS: EOMs intact bilaterally and conjunctivae normal CONJUNCTIVA: Yes conjunctivae normal Neck/C-Spine: COMMON NORMALS: full ROM and supple OTHER: Reproducible pain with lateral rotation at the neck Chest: COMMONS NORMALS: normal inspection of the chest and normal palpation of entire chest wall Resp: COMMON NORMALS: normal respiratory effort, No retractions, No use of accessory muscles and clear to auscultation bilaterally AUSCULTATION: clear to auscultation bilaterally Cardio: COMMON NORMALS: regular rate, regular rhythm, S1 normal heart sound present and S2 normal heart sound present RATE: regular rate RHYTHM: regular rhythm HEART SOUNDS: S1 normal heart sound present and S2 normal heart sound present GI: COMMON NORMALS: Soft to palpation and non-tender PALPATION: Yes Soft to palpation Back/Pelvis: OTHER: Mild reproducible tenderness to palpation of the right parathoracic muscles, specifically along lower rib margin. This does wrap ventrally around to the right rib area, there are no overlying signs of trauma such as step-off deformity, or bruising. Extremity: COMMON NORMALS: normal to inspection and full ROM Neuro: COMMON NORMALS: patient oriented x3, moves all extremities, no focal motor deficits and no sensory deficits noted SENSORIUM/ORIENTATION: Yes alert Skin: COMMON NORMALS: no rashes or lesions noted GENERAL SKIN EXAM: no rashes or lesions noted Course Vital Signs: Vital signs: Vital Signs Temperature 98.0 F 03/29/24 13:55 Pulse Rate 85 03/29/24 13:55 Respiratory Rate 16 03/29/24 13:55 Blood Pressure 133/84 03/29/24 13:55 Pulse Oximetry 97 03/29/24 13:55 Oxygen Delivery Me thod Room Air 03/29/24 13:55 MDM - Back Pain/Injury Medical Decision Making Atraumatic pain to right posterior back, pain radiating up to neck. 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 His vitals were stable on arrival, he had no concerning past medical history to report. His EKG showed normal sinus rhythm with no acute STEMI. Chest x-ray no fractures or pneumothorax or other concerning thoracic findings. His lab work also normal. He notes relief of pain after receiving medications here, at this time it is thought that his pain related to a costochondritis may be potentially an musculoskeletal back strain of the deep thoracic muscles. Will have him rest and recover as well, work note was provided. Encouraged beginning ibuprofen and will have him treat with steroids at home. Return precautions given and all other questions and concerns addressed. He is comfortable with discharge home at this time. Labs 03/29/24 19:29 03/29/24 19: Radiology Impressions Chest X-Ray 03/29/24 18:43 IMPRESSION: 1. No acute cardiopulmonary abnormality. Laboratory Results WBC 8.56 10^3/uL (3.29-11.43) 03/29/24 19: RBC 5.04 10^6/uL (3.85-5.65) 03/29/24 19: Hgb 14.90 g/dL (11.27-16.99) 03/29/24 19: Hct 44.1 % (37-53) 03/29/24 19: MCV 87.5 fl (82-101) 03/29/24 19: MCH 29.6 pg (27-33) 03/29/24: MCHC 33.8 g/dL (30-55) 03/29/24: RDW 12.8 % (12.1-15.1) 03/29/24: Plt Count 209 10^3/cmm (157-399) 03/29/24 19: MPV 11.5 fL (7.4-10.4) H 03/29/24 19: Neut % (Auto) 62.1 % 03/29/24: Lymph % (Auto) 24.4 % 03/29/24: Sac % (Auto) 10.5 % 03/29/24 19: Eos % (Auto) 1.8 % 03/29/24: Baso % (Auto) 0.8 % 03/29/24: Neut # (Auto) 5.32 10^3/uL (1.8-7.7) 03/29/24: Lymph # (Auto) 2.1 10^3/uL (0.8-4.8) 03/29/24: Sac # (Auto) 0.9 10^3/uL (0.2-0.9) 03/29/24 19: Eos # (Auto) 0.2 10^3/uL (0.0-0.8) 03/29/24 19: Baso # (Auto) 0.1 10^3/uL (0.0-0.1) 03/29/24 19:29 Nucleated RBC % (auto) 0 % 03/29/24 19:29 Nucleated RBCs # 0.0 /100WBC 03/29/24 19:29 Sodium 141 mmol/L (136-145) 03/29/24 19:29 Potassium 4.1 mmol/L (3.5-5.1) 03/29/24 19:29 Chloride 98 mmol/L (98-107) 03/29/24 19:29 Carbon Dioxide 27 mmol/L (22-29) 03/29/24 19:29 Anion Gap 20.1 (5-19) H 03/29/24 19:29 BUN 11 mg/dL (6-20) 03/29/24 19:29 Creatinine 0.9 mg/dL (0.7-1.2) 03/29/24 19:29 GFR Calculation 96.0 mL/min (90-130) 03/29/24 19:29 Glucose 99 mg/dL (65-115) 03/29/24 19:29 Calculated Osmolality 291 mOsm/kg (285-295) 03/29/24 19:29 Calcium 9.5 mg/dL (8.5-10.5) 03/29/24 19:29 Total Bilirubin 1.3 mg/dL (0.15-1.2) H 03/29/24 19:29 AST 22 U/L (0-40) 03/29/24 19:29 ALT 42 U/L (0-41) H 03/29/24 19:29 Alkaline Phosphatase 75 U/L (40-130) 03/29/24 19:29 Total Protein 7.4 g/dL (6.6-8.7) 03/29/24 19:29 Albumin 4.6 g/dL (3.5-5.2) 03/29/24 19:29 Globulin 2.8 g/dL (1.3-4.6) 03/29/24 19:29 All radiology interpretation(s) finalized by discharge Discharge Plan Discharge Patient Disposition: Home Clinical Impression: Acute costochondritis Condition: Stable Prescriptions: New cyclobenzaprine 10 mg tablet 10 mg PO TID Qty: 15 0RF prednisone 20 mg tablet 40 mg PO ONCE 5 Days Qty: 10 0RF No Action cyproheptadine 4 mg tablet 4 mg PO BEDTIME Qty: 30 6RF Rx Instructions: Take one tablet at bedtime fluoxetine [Prozac] 20 mg capsule 20 mg PO .morning Qty: 30 6RF Rx Instructions: Take one capsule every morning with 10 mg capsule, total dose 30 mg fluoxetine [Prozac] 10 mg capsule 10 mg PO .morning Qty: 30 6RF Rx Instructions: Take one capsule every morning with 20 mg capsule, total dose 30 mg acetaminophen 500 mg Capsule 1,000 mg PO QID PRN (Reason: Pain) Hold Instructions: Resume on 10/26/23. alprazolam 1 mg tablet 1 mg PO TID Qty: 90 3RF Rx Instructions: Take one tablet three times per day pantoprazole [Protonix] 40 mg tablet,delayed release (DR/EC) 40 mg PO BID 42 Days Qty: 84 1RF Colace 100 mg capsule 100 mg PO BID Qty: 14 0RF Discharge Orders: Discharge ED (Routine); Ordered 03/29/24 Ordered By: Darshan Suarez Referrals: Silvio Hoang MD [Primary Care Provider] - Patient Instructions: Costochondritis (ED) Activity Restrictions/Additional Instructions: See attached patient instructions for further education. General rest and recovery, attached work note. Take muscle relaxers as needed, please do not operate any heavy machinery or drive after taking dose, recommend taking before bed. Please begin implementing ibuprofen for pain relief, and take prednisone as prescribed. You may apply [id number] topical treatments such as IcyHot. Please follow-up with primary care as needed and return with any new concerning symptoms. Stand Alone Forms: Work/School Release Coding Level of Care Code ED Breaker Oiler for Joanie Finney
[2024-03-29] MEDS: orphenadrine 30 mg/mL Inj 2 mL 60 MG IM (19:08)
[2024-03-29] MEDS: ketorolac 60 mg/2 mL INJ IM (19:08)
[2024-03-29] MEDS: dexamethasone 10 mg/mL INJ IM (19:09)
[2024-03-29 19:53] LABS: Basophils # 0.1 10^3/uL (0.0-0.1); Basophils % 0.8 %; Eosinophils # 0.2 10^3/uL (0.0-0.8); Eosinophils % 1.8 %; Hematocrit 44.1 % (37-53); Lymphocytes # 2.1 10^3/uL (0.8-4.8); Lymphocytes % 24.4 %; Mean Corpuscular HGB Conc 33.8 g/dL (30-55); Mean Corpuscular Hemoglobin 29.6 pg (27-33); Mean Corpuscular Volume 87.5 fl (82-101); Mean Platelet Volume 11.5 fL (7.4-10.4); Monocytes # 0.9 10^3/uL (0.2-0.9); Monocytes % 10.5 %; Neutrophils # 5.32 10^3/uL (1.8-7.7); Neutrophils % 62.1 %; Nucleated Red Blood Cells % 0 %; Platelet Count 209 10^3/cmm (157-399); Red Blood Count 5.04 10^6/uL (3.85-5.65); Red Cell Distribution Width 12.8 % (12.1-15.1); White Blood Count 8.56 10^3/uL (3.29-11.43)
[2024-03-29 20:12] LABS: Alanine Aminotransferase 42 U/L (0-41); Albumin Level 4.6 g/dL (3.5-5.2); Alkaline Phosphatase 75 U/L (40-130); Anion Gap 20.1 (5-19); Aspartate Amino Transferase 22 U/L (0-40); Blood Urea Nitrogen 11 mg/dL (6-20); Calcium 9.5 mg/dL (8.5-10.5); Carbon Dioxide 27 mmol/L (22-29); Chloride 98 mmol/L (98-107); Creatinine Clr Calc Pharmacy 117.9494; Globulin 2.8 g/dL (1.3-4.6); Glucose 99 mg/dL (65-115); Osmolality Calculated 291 mOsm/kg (285-295); Potassium 4.1 mmol/L (3.5-5.1); Sodium 141 mmol/L (136-145); Total Bilirubin 1.3 mg/dL (0.15-1.2); Total Protein 7.4 g/dL (6.6-8.7)
[2024-03-29 20:56] VITALS: BP 142/91
== END 2024-03-29 20:57 | disposition home or self-care (01) ==
PROVIDERS: Emergency Provider Physician Assistant; PCP Family Medicine
DX: M94.0 Chondrocostal junction syndrome [Tietze] (principal); Z72.0 Tobacco use
CPT/HCPCS: 36415; 71045; 80053; 85025; 93005; 96372; 99285; J1100; J1885; J2360